=== PATIENT | female | born 1985 | race African-American/Black ===

== ENCOUNTER 2016-10-19 16:33 | Observation (INO) | payer MEDICARE, OTHER ==
[~2016-10-19 16:33] MED LIST: PREN-134 PO
[2016-10-19 17:28] VITALS: BP 107/53
[2016-10-19] MEDS ORDERED: ACETAMINOPHEN 325 MG TABLET PO ONE (21:00)
[2016-10-19] MEDS ORDERED: ACETAMINOPHEN 500 MG TABLET PO ONE (21:00)
== END 2016-10-19 22:05 | disposition home or self-care (01) ==
LOC: 4S 16:33
PROVIDERS: ADMIT Obstetrics & Gynecology; ATTEND Obstetrics & Gynecology
DX: O26.893 Other specified pregnancy related conditions, third trimester (principal); R10.2 Pelvic and perineal pain; R10.30 Lower abdominal pain, unspecified; Z3A.33 33 weeks gestation of pregnancy
CPT/HCPCS: 59025; 76817; 80307 ×8; 82731; G0378

== ENCOUNTER 2016-11-11 01:56 | Emergency (ER) | payer MEDICARE, OTHER ==
[~2016-11-11] VITALS: Ht 160 cm; Wt 110.0 kg
[2016-11-11 04:39] LABS: BASOPHILS # (AUTO) 0.05 K/uL (0.00-0.20); BASOPHILS % (AUTO) 0.6 % (0.0-2.0); EOSINOPHILS # (AUTO) 0.15 K/uL (0.00-0.70); EOSINOPHILS % (AUTO) 1.72 % (1.0-6.0); HEMATOCRIT 27.4 % (36-46); HEMOGLOBIN 8.8 g/dL (12.0-16.0); LYMPHOCYTES # (AUTO) 2.4 K/uL (1.0-4.8); LYMPHOCYTES % (AUTO) 28.2 % (22.0-44.0); MEAN CORPUSCULAR HEMOGLOBIN 27.7 pg (26.0-34.0); MEAN CORPUSCULAR HGB CONC 32.3 G/dL (31.0-37.0); MEAN CORPUSCULAR VOLUME 86 fL (80-100); MONOCYTES # (AUTO) 0.4 K/uL (0.1-1.0); MONOCYTES % (AUTO) 5.1 % (2.0-9.0); NEUTROPHILS # (AUTO) 5.6 K/uL (1.8-7.7); NEUTROPHILS % (AUTO) 64.5 % (40.0-70.0); PLATELET COUNT (AUTO) 365 K/uL (150-450); RED BLOOD CELL COUNT(AUTO) 3.19 MIL/uL (4.00-5.20); RED CELL DISTRIBUTION WIDTH 17.3 % (11.5-14.5); WHITE BLOOD COUNT (AUTO) 8.6 K/uL (4.5-11.0)
[2016-11-11 04:46] LABS: ANION GAP 10 mmol/L (8-16); CALCIUM, TOTAL 8.4 mg/dL (8.8-10.5); CARBON DIOXIDE 26 mmol/L (22-29); CHLORIDE 105 mmol/L (98-107); CREATININE 0.84 mg/dL (0.60-1.30); GLOMERULAR FILTR. RATE CALC > 60 mL/min (>60); POTASSIUM 3.8 mmol/L (3.5-5.1); SODIUM SERUM 141 mmol/L (136-145); UREA NITROGEN, BLOOD 20 mg/dL (7-18)
[2016-11-11 04:49] LABS: PROTHROMBIN TIME 10.2 SEC (9.4-11.6)
[2016-11-11 04:52] LABS: ALANINE AMINOTRANSFERASE 44 U/L (12-78); ALBUMIN 2.4 g/dL (3.4-5.0); ASPARTATE AMINOTRANSFERASE 29 U/L (15-37); BILIRUBIN,TOTAL 0.3 mg/dL (0.1-1.0); TOTAL PROTEIN, SERUM 6.1 g/dL (6.4-8.2)
[2016-11-11 04:54] LABS: B-TYPE NATRIURETIC PEPTIDE 59 pg/mL (0-100)
[2016-11-11 05:31] VITALS: BP 137/88
== END 2016-11-11 06:38 | disposition home or self-care (01) ==
LOC: EMS 01:57
DX: R60.9 Edema, unspecified (principal); F31.9 Bipolar disorder, unspecified; F20.9 Schizophrenia, unspecified; J45.909 Unspecified asthma, uncomplicated; Z88.0 Allergy status to penicillin
CPT/HCPCS: 99284

== ENCOUNTER 2017-01-03 22:24 | Emergency (ER) | payer MEDICARE, OTHER ==
[~2017-01-03] VITALS: Ht 167.6 cm; Wt 85.0 kg
[2017-01-03 22:59] LABS: BASOPHILS % (AUTO) 0.7 % (0.0-2.0); EOSINOPHILS % (AUTO) 0.3 % (1.0-6.0); HEMATOCRIT 32.5 % (36-46); HEMOGLOBIN 10.5 g/dL (12.0-16.0); LYMPHOCYTES # (AUTO) 2.2 K/uL (1.0-4.8); LYMPHOCYTES % (AUTO) 27.7 % (22.0-44.0); MEAN CORPUSCULAR HEMOGLOBIN 27.1 pg (26.0-34.0); MEAN CORPUSCULAR HGB CONC 32.2 G/dL (31.0-37.0); MEAN CORPUSCULAR VOLUME 84 fL (80-100); MONOCYTES # (AUTO) 0.4 K/uL (0.1-1.0); MONOCYTES % (AUTO) 4.6 % (2.0-9.0); NEUTROPHILS # (AUTO) 5.4 K/uL (1.8-7.7); NEUTROPHILS % (AUTO) 66.7 % (40.0-70.0); PLATELET COUNT (AUTO) 317 K/uL (150-450); RED BLOOD CELL COUNT(AUTO) 3.86 MIL/uL (4.00-5.20); RED CELL DISTRIBUTION WIDTH 17.7 % (11.5-14.5); WHITE BLOOD COUNT (AUTO) 8.1 K/uL (4.5-11.0)
[2017-01-03 23:01] LABS: RBC MORPHOLOGY COMMENT ABNORMAL RBC MORPH
[2017-01-03 23:04] LABS: ANION GAP 12 mmol/L (8-16); CALCIUM, TOTAL 9.3 mg/dL (8.8-10.5); CARBON DIOXIDE 24 mmol/L (22-29); CHLORIDE 103 mmol/L (98-107); GLOMERULAR FILTR. RATE CALC > 60 mL/min (>60); POTASSIUM 3.6 mmol/L (3.5-5.1); SODIUM SERUM 139 mmol/L (136-145); UREA NITROGEN, BLOOD 14 mg/dL (7-18)
[2017-01-03 23:10] LABS: ALANINE AMINOTRANSFERASE 27 U/L (12-78); ALBUMIN 4.1 g/dL (3.4-5.0); ASPARTATE AMINOTRANSFERASE 33 U/L (15-37); BILIRUBIN,TOTAL 0.6 mg/dL (0.1-1.0); TOTAL PROTEIN, SERUM 7.8 g/dL (6.4-8.2)
[2017-01-04 00:18] VITALS: BP 134/82
== END 2017-01-04 00:21 | disposition home or self-care (01) ==
LOC: EMS 22:26
DX: F31.9 Bipolar disorder, unspecified (principal); F20.9 Schizophrenia, unspecified; J45.909 Unspecified asthma, uncomplicated; Z88.0 Allergy status to penicillin
CPT/HCPCS: 36415; 80053; 84703; 85025; 99284; G0480

== ENCOUNTER 2017-01-26 04:03 | Emergency (ER) | payer MEDICARE, OTHER ==
[~2017-01-26] VITALS: Ht 160 cm; Wt 79.1 kg
[2017-01-26 04:53] LABS: BASOPHILS # (AUTO) 0.07 K/uL (0.00-0.20); BASOPHILS % (AUTO) 1.1 % (0.0-2.0); EOSINOPHILS # (AUTO) 0.08 K/uL (0.00-0.70); EOSINOPHILS % (AUTO) 1.11 % (1.0-6.0); HEMATOCRIT 38.1 % (36-46); HEMOGLOBIN 12.4 g/dL (12.0-16.0); LYMPHOCYTES % (AUTO) 29.4 % (22.0-44.0); MEAN CORPUSCULAR HEMOGLOBIN 27.9 pg (26.0-34.0); MEAN CORPUSCULAR HGB CONC 32.5 G/dL (31.0-37.0); MEAN CORPUSCULAR VOLUME 86 fL (80-100); MONOCYTES # (AUTO) 0.4 K/uL (0.1-1.0); MONOCYTES % (AUTO) 6.1 % (2.0-9.0); NEUTROPHILS # (AUTO) 4.2 K/uL (1.8-7.7); NEUTROPHILS % (AUTO) 62.3 % (40.0-70.0); PLATELET COUNT (AUTO) 395 K/uL (150-450); RED BLOOD CELL COUNT(AUTO) 4.44 MIL/uL (4.00-5.20); RED CELL DISTRIBUTION WIDTH 17.4 % (11.5-14.5); WHITE BLOOD COUNT (AUTO) 6.8 K/uL (4.5-11.0)
[2017-01-26] MEDS ORDERED: HYDROCODONE/ACETAMINOPHEN 5-325 MG TABLET PO ONE (05:00)
[2017-01-26 05:01] LABS: ANION GAP 8 mmol/L (8-16); CALCIUM, TOTAL 9.5 mg/dL (8.8-10.5); CARBON DIOXIDE 30 mmol/L (22-29); CHLORIDE 102 mmol/L (98-107); CREATININE 0.98 mg/dL (0.60-1.30); GLOMERULAR FILTR. RATE CALC > 60 mL/min (>60); POTASSIUM 4.2 mmol/L (3.5-5.1); SODIUM SERUM 140 mmol/L (136-145); UREA NITROGEN, BLOOD 16 mg/dL (7-18)
[2017-01-26 05:15] LABS: ALANINE AMINOTRANSFERASE 25 U/L (12-78); ALBUMIN 4.2 g/dL (3.4-5.0); ASPARTATE AMINOTRANSFERASE 13 U/L (15-37); BILIRUBIN,TOTAL 0.5 mg/dL (0.1-1.0); TOTAL PROTEIN, SERUM 8.6 g/dL (6.4-8.2)
[2017-01-26 05:17] LABS: B-TYPE NATRIURETIC PEPTIDE < 5 pg/mL (0-100)
[2017-01-26 05:34] VITALS: BP 101/59
[2017-01-26] MEDS ORDERED: LAMO25 PO (22:01)
[2017-01-26] MEDS ORDERED: QUET100T PO (22:01)
== END 2017-01-26 06:03 | disposition home or self-care (01) ==
LOC: EMS 04:07
DX: R07.9 Chest pain, unspecified (principal); K08.89 Other specified disorders of teeth and supporting structures; J45.909 Unspecified asthma, uncomplicated; Z88.0 Allergy status to penicillin
CPT/HCPCS: 85379; 93005; 99285

== ENCOUNTER 2017-01-26 21:53 | Emergency (ER) | payer MEDICARE, OTHER ==
[~2017-01-26] VITALS: Ht 167.6 cm; Wt 81.8 kg
[2017-01-26] MEDS ORDERED: LAMO25 PO (22:01)
[2017-01-26] MEDS ORDERED: QUET100T PO (22:01)
[2017-01-26 22:53] LABS: BASOPHILS # (AUTO) 0.07 K/uL (0.00-0.20); BASOPHILS % (AUTO) 0.9 % (0.0-2.0); EOSINOPHILS # (AUTO) 0.08 K/uL (0.00-0.70); HEMATOCRIT 38.9 % (36-46); HEMOGLOBIN 12.4 g/dL (12.0-16.0); LYMPHOCYTES # (AUTO) 2.3 K/uL (1.0-4.8); LYMPHOCYTES % (AUTO) 32.5 % (22.0-44.0); MEAN CORPUSCULAR HEMOGLOBIN 27.9 pg (26.0-34.0); MEAN CORPUSCULAR HGB CONC 31.8 G/dL (31.0-37.0); MEAN CORPUSCULAR VOLUME 88 fL (80-100); MONOCYTES # (AUTO) 0.4 K/uL (0.1-1.0); MONOCYTES % (AUTO) 5.3 % (2.0-9.0); NEUTROPHILS # (AUTO) 4.2 K/uL (1.8-7.7); NEUTROPHILS % (AUTO) 60.2 % (40.0-70.0); PLATELET COUNT (AUTO) 377 K/uL (150-450); RED BLOOD CELL COUNT(AUTO) 4.43 MIL/uL (4.00-5.20); RED CELL DISTRIBUTION WIDTH 17.2 % (11.5-14.5)
[2017-01-26 23:03] LABS: ANION GAP 8 mmol/L (8-16); CALCIUM, TOTAL 9.5 mg/dL (8.8-10.5); CARBON DIOXIDE 29 mmol/L (22-29); CHLORIDE 104 mmol/L (98-107); CREATININE 0.92 mg/dL (0.60-1.30); GLOMERULAR FILTR. RATE CALC > 60 mL/min (>60); POTASSIUM 3.7 mmol/L (3.5-5.1); SODIUM SERUM 141 mmol/L (136-145); UREA NITROGEN, BLOOD 13 mg/dL (7-18)
[2017-01-26 23:26] LABS: ALANINE AMINOTRANSFERASE 22 U/L (12-78); ASPARTATE AMINOTRANSFERASE 12 U/L (15-37); BILIRUBIN,TOTAL 0.4 mg/dL (0.1-1.0); CREATINE KINASE, TOTAL 86 U/L (26-192); TOTAL PROTEIN, SERUM 8.4 g/dL (6.4-8.2)
[2017-01-26 23:46] LABS: CREATINE KINASE MB 0.5 ng/mL (0-5)
[2017-01-27] MEDS ORDERED: HYDROmorphone 2 MG/ML SYRINGE IVP ONE (00:15)
[2017-01-27] MEDS ORDERED: FAMOTIDINE 10 MG/ML 2 ML VIAL IVP ONE (00:15)
[2017-01-27] MEDS ORDERED: ONDANSETRON HCL 4 MG/2 ML VIAL IVP ONE (00:15)
[2017-01-27] MEDS ORDERED: MAG HYDROX/AL HYDROX/SIMETH ES 30 ML SUSPENSION UDCUP PO ONE (01:15)
[2017-01-27 03:21] VITALS: BP 120/60
== END 2017-01-27 03:20 | disposition home or self-care (01) ==
LOC: EMS 21:54
DX: K80.70 Calculus of gallbladder and bile duct without cholecystitis without obstruction (principal); R07.89 Other chest pain; J45.909 Unspecified asthma, uncomplicated; Z88.0 Allergy status to penicillin
CPT/HCPCS: 36415; 71010; 76700; 80053; 82550; 82553; 83690; 84484; 84703; 85025; 85379; 93005; 96374; 96375; 99285; J1170; J2405; J3490

== ENCOUNTER 2017-01-30 00:55 | Emergency (ER) | payer MEDICARE, OTHER ==
[~2017-01-30] VITALS: Ht 165.1 cm; Wt 84.1 kg
[~2017-01-30 00:55] MED LIST changes: +LAMO25 PO; -PREN-134 PO; +QUET100T PO
[2017-01-30 00:58] VITALS: BP 121/79
[2017-01-30 02:42] LABS: BASOPHILS # (AUTO) 0.03 K/uL (0.00-0.20); BASOPHILS % (AUTO) 0.4 % (0.0-2.0); EOSINOPHILS # (AUTO) 0.07 K/uL (0.00-0.70); EOSINOPHILS % (AUTO) 0.75 % (1.0-6.0); HEMATOCRIT 38.9 % (36-46); HEMOGLOBIN 12.5 g/dL (12.0-16.0); LYMPHOCYTES # (AUTO) 2.9 K/uL (1.0-4.8); LYMPHOCYTES % (AUTO) 33.3 % (22.0-44.0); MEAN CORPUSCULAR HGB CONC 32.3 G/dL (31.0-37.0); MEAN CORPUSCULAR VOLUME 87 fL (80-100); MONOCYTES # (AUTO) 0.4 K/uL (0.1-1.0); MONOCYTES % (AUTO) 4.3 % (2.0-9.0); NEUTROPHILS # (AUTO) 5.4 K/uL (1.8-7.7); NEUTROPHILS % (AUTO) 61.3 % (40.0-70.0); PLATELET COUNT (AUTO) 372 K/uL (150-450); RED BLOOD CELL COUNT(AUTO) 4.47 MIL/uL (4.00-5.20); RED CELL DISTRIBUTION WIDTH 17.1 % (11.5-14.5); WHITE BLOOD COUNT (AUTO) 8.7 K/uL (4.5-11.0)
[2017-01-30 03:07] LABS: ANION GAP 9 mmol/L (8-16); CALCIUM, TOTAL 9.5 mg/dL (8.8-10.5); CARBON DIOXIDE 28 mmol/L (22-29); CHLORIDE 103 mmol/L (98-107); CREATININE 1.22 mg/dL (0.60-1.30); GLOMERULAR FILTR. RATE CALC > 60 mL/min (>60); POTASSIUM 3.5 mmol/L (3.5-5.1); SODIUM SERUM 140 mmol/L (136-145); UREA NITROGEN, BLOOD 22 mg/dL (7-18)
[2017-01-30 03:12] LABS: ALANINE AMINOTRANSFERASE 24 U/L (12-78); ALBUMIN 4.3 g/dL (3.4-5.0); ASPARTATE AMINOTRANSFERASE 14 U/L (15-37); BILIRUBIN,TOTAL 0.3 mg/dL (0.1-1.0); TOTAL PROTEIN, SERUM 8.6 g/dL (6.4-8.2)
== END 2017-01-30 05:52 | disposition left against medical advice (07) ==
LOC: EMS 00:58
DX: R07.2 Precordial pain (principal); K08.89 Other specified disorders of teeth and supporting structures; J45.909 Unspecified asthma, uncomplicated; Z88.0 Allergy status to penicillin
CPT/HCPCS: 36415; 80053; 80307; 85025; 93005; 99285; G0480

== ENCOUNTER 2017-02-03 16:24 | Inpatient (IN) | payer MEDICARE, MEDICAID ==
[~2017-02-03] VITALS: Ht 170.2 cm; Wt 78.5 kg
[2017-02-03 17:22] LABS: BASOPHILS # (AUTO) 0.09 K/uL (0.00-0.20); EOSINOPHILS # (AUTO) 0.02 K/uL (0.00-0.70); EOSINOPHILS % (AUTO) 0.26 % (1.0-6.0); HEMATOCRIT 34.4 % (36-46); LYMPHOCYTES # (AUTO) 2.6 K/uL (1.0-4.8); LYMPHOCYTES % (AUTO) 28.3 % (22.0-44.0); MEAN CORPUSCULAR HEMOGLOBIN 27.5 pg (26.0-34.0); MEAN CORPUSCULAR HGB CONC 31.9 G/dL (31.0-37.0); MEAN CORPUSCULAR VOLUME 86 fL (80-100); MONOCYTES # (AUTO) 0.7 K/uL (0.1-1.0); MONOCYTES % (AUTO) 7.6 % (2.0-9.0); NEUTROPHILS # (AUTO) 5.9 K/uL (1.8-7.7); NEUTROPHILS % (AUTO) 62.9 % (40.0-70.0); PLATELET COUNT (AUTO) 329 K/uL (150-450); RED BLOOD CELL COUNT(AUTO) 3.98 MIL/uL (4.00-5.20); RED CELL DISTRIBUTION WIDTH 15.7 % (11.5-14.5); WHITE BLOOD COUNT (AUTO) 9.3 K/uL (4.5-11.0)
[2017-02-03 17:28] LABS: ALANINE AMINOTRANSFERASE 52 U/L (12-78); ALBUMIN 4.3 g/dL (3.4-5.0); ANION GAP 15 mmol/L (8-16); ASPARTATE AMINOTRANSFERASE 182 U/L (15-37); BILIRUBIN,TOTAL 0.9 mg/dL (0.1-1.0); CALCIUM, TOTAL 9.2 mg/dL (8.8-10.5); CARBON DIOXIDE 24 mmol/L (22-29); CHLORIDE 102 mmol/L (98-107); GLOMERULAR FILTR. RATE CALC 57 mL/min (>60); SODIUM SERUM 141 mmol/L (136-145); TOTAL PROTEIN, SERUM 8.2 g/dL (6.4-8.2); UREA NITROGEN, BLOOD 19 mg/dL (7-18)
[2017-02-03 17:30] LABS: POTASSIUM 2.8 mmol/L (3.5-5.1)
[2017-02-03] MEDS ORDERED: HALOPERIDOL LACTATE 5 MG/ML VIAL IM ONE (17:45)
[2017-02-03] MEDS ORDERED: POTASSIUM CHLORIDE 20 MEQ ER TABLET PO ONE (17:45)
[2017-02-03] MEDS ORDERED: POTASSIUM CHL 40 MEQ/D5-0.45NS 1,000 ML IV ONE (17:45)
[2017-02-03] MEDS ORDERED: DiphenhydrAMINE HCL 50 MG/ML VIAL IM ONE (17:45)
[2017-02-03] MEDS ORDERED: LORazepam 2 MG/ML VIAL IM ONE (17:45)
[2017-02-03 20:37] LABS: GLUCOSE,POINT OF CARE 103 MG/DL (70-110)
[2017-02-04] MEDS ORDERED: ACETAMINOPHEN 325 MG TABLET PO ONE (08:30)
[2017-02-04 13:35] VITALS: BP 109/69
[2017-02-04] MEDS ORDERED: PNEUMOCOCCAL VACCINE POLYVALENT 0.5 ML VIAL [PPSV23] IM ONE (14:15)
[2017-02-04] MEDS ORDERED: ALBUTEROL SULFATE HFA 90 MCG/PUFF 8 GM INHALER IH PRN (15:00)
[2017-02-04] MEDS: ZOLPIDEM TARTRATE 10 MG TABLET PO PRN (20:30)
[2017-02-05 00:02] VITALS: BP 119/81
[2017-02-05] MEDS: LORazepam 2 MG TABLET PO PRN ×2 (00:09→17:03)
[2017-02-05] MEDS: DIVALPROEX SODIUM 500 MG DR TABLET PO SCH ×2 (08:57→17:00)
[2017-02-05] MEDS: LITHIUM CARBONATE 300 MG CAPSULE PO SCH ×2 (08:57→17:00)
[2017-02-05] MEDS: QUEtiapine FUMARATE 300 MG TABLET PO SCH ×2 (08:57→17:00)
[2017-02-05] MEDS ORDERED: ACETAMINOPHEN 650 MG/20.3 ML SOLUTION UDCUP PO PRN (10:45)
[2017-02-05] MEDS ORDERED: ACETAMINOPHEN 325 MG TABLET PO PRN (13:00)
[2017-02-05] MEDS: IBUPROFEN 400 MG TABLET PO PRN (15:45)
[2017-02-05 16:00] VITALS: BP 119/78
[2017-02-06 02:46] VITALS: BP 116/82
[2017-02-06] MEDS: ZOLPIDEM TARTRATE 10 MG TABLET PO PRN ×2 (02:49→20:22)
[2017-02-06] MEDS: IBUPROFEN 400 MG TABLET PO PRN ×2 (08:15→16:25)
[2017-02-06] MEDS: LORazepam 2 MG TABLET PO PRN ×2 (08:15→16:24)
[2017-02-06 08:44] VITALS: BP 122/69
[2017-02-06] MEDS: QUEtiapine FUMARATE 300 MG TABLET PO SCH ×2 (09:00→17:00)
[2017-02-06] MEDS: LITHIUM CARBONATE 300 MG CAPSULE PO SCH ×2 (09:00→17:00)
[2017-02-06] MEDS: DIVALPROEX SODIUM 500 MG DR TABLET PO SCH ×2 (09:00→17:00)
[2017-02-06] MEDS ORDERED: PERMETHRIN 5% 60 GM CREAM TP ONE (10:00)
[2017-02-06] MEDS ORDERED: PERMETHRIN 1% 60 ML LOTION TP ONE (12:00)
[2017-02-06 16:15] VITALS: BP 124/84
[2017-02-07 06:26] VITALS: BP 118/69
[2017-02-07] MEDS: HALOPERIDOL 5 MG TABLET PO PRN ×2 (08:22→16:25)
[2017-02-07 08:36] VITALS: BP 111/78
[2017-02-07] MEDS: IBUPROFEN 400 MG TABLET PO PRN (08:42)
[2017-02-07] MEDS: DIVALPROEX SODIUM 500 MG DR TABLET PO SCH ×2 (08:51→17:00)
[2017-02-07] MEDS: LITHIUM CARBONATE 300 MG CAPSULE PO SCH ×2 (08:51→17:00)
[2017-02-07] MEDS: QUEtiapine FUMARATE 300 MG TABLET PO SCH ×2 (08:52→17:00)
[2017-02-07 16:37] VITALS: BP 132/64
[2017-02-07] MEDS: ZOLPIDEM TARTRATE 10 MG TABLET PO PRN (20:43)
[2017-02-08 08:27] VITALS: BP 135/98
[2017-02-08] MEDS: QUEtiapine FUMARATE 300 MG TABLET PO SCH (09:00)
[2017-02-08] MEDS: LITHIUM CARBONATE 300 MG CAPSULE PO SCH (09:00)
[2017-02-08] MEDS: DIVALPROEX SODIUM 500 MG DR TABLET PO SCH (09:00)
[2017-02-08] MEDS ORDERED: QUET300T2 PO (09:48)
[2017-02-08] MEDS ORDERED: LITH300C3 PO (09:49)
[2017-02-08] MEDS ORDERED: DIVA250T4 PO (09:55)
== END 2017-02-08 10:34 | disposition home or self-care (01) | DRG 885 ==
LOC: EMS 16:26 → B3A 02-04 10:48
PROVIDERS: ADMIT Psychiatry & Neurology Psychiatry; ATTEND Psychiatry & Neurology Psychiatry
DX: F31.9 Bipolar disorder, unspecified (principal); F25.9 Schizoaffective disorder, unspecified; E87.6 Hypokalemia; L20.9 Atopic dermatitis, unspecified; F22 Delusional disorders; J45.909 Unspecified asthma, uncomplicated; E66.9 Obesity, unspecified; Z53.29 Procedure and treatment not carried out because of patient's decision for other reasons; E78.5 Hyperlipidemia, unspecified; D64.9 Anemia, unspecified; K59.00 Constipation, unspecified; Z88.0 Allergy status to penicillin; Z28.21 Immunization not carried out because of patient refusal
CPT/HCPCS: 82962; 84132; 93005; 96365; 96366; 96372; 99285; G0480; J1200; J1630; J2060; J3480

== ENCOUNTER 2017-02-18 00:42 | Inpatient (IN) | payer MEDICARE, MEDICAID ==
[~2017-02-18] VITALS: Ht 172.7 cm; Wt 76.4 kg
[~2017-02-18 00:42] MED LIST changes: +DIVA250T4 PO; -LAMO25 PO; +LITH300C3 PO; -QUET100T PO; +QUET300T2 PO
[2017-02-18] MEDS ORDERED: DiphenhydrAMINE HCL 50 MG/ML VIAL ONE (01:22)
[2017-02-18] MEDS ORDERED: HALOPERIDOL LACTATE 5 MG/ML VIAL ONE (01:22)
[2017-02-18] MEDS ORDERED: LORazepam 2 MG/ML VIAL ONE (01:22)
[2017-02-18] MEDS ORDERED: HALOPERIDOL LACTATE 5 MG/ML VIAL IM ONE (01:30)
[2017-02-18] MEDS ORDERED: LORazepam 2 MG/ML VIAL IM ONE (01:30)
[2017-02-18] MEDS ORDERED: DiphenhydrAMINE HCL 50 MG/ML VIAL IM ONE (01:30)
[2017-02-18 02:42] LABS: BASOPHILS % (AUTO) 0.2 % (0.0-2.0); EOSINOPHILS % (AUTO) 0 % (1.0-6.0); HEMATOCRIT 35.6 % (36-46); HEMOGLOBIN 11.3 g/dL (12.0-16.0); LYMPHOCYTES # (AUTO) 1.7 K/uL (1.0-4.8); LYMPHOCYTES % (AUTO) 16.3 % (22.0-44.0); MEAN CORPUSCULAR HEMOGLOBIN 27.7 pg (26.0-34.0); MEAN CORPUSCULAR HGB CONC 31.8 G/dL (31.0-37.0); MEAN CORPUSCULAR VOLUME 87 fL (80-100); MONOCYTES # (AUTO) 0.2 K/uL (0.1-1.0); MONOCYTES % (AUTO) 2.1 % (2.0-9.0); NEUTROPHILS # (AUTO) 8.4 K/uL (1.8-7.7); NEUTROPHILS % (AUTO) 81.4 % (40.0-70.0); PLATELET COUNT (AUTO) 392 K/uL (150-450); RED BLOOD CELL COUNT(AUTO) 4.09 MIL/uL (4.00-5.20); RED CELL DISTRIBUTION WIDTH 16.3 % (11.5-14.5); WHITE BLOOD COUNT (AUTO) 10.4 K/uL (4.5-11.0)
[2017-02-18 02:51] LABS: ANION GAP 10 mmol/L (8-16); CALCIUM, TOTAL 9.3 mg/dL (8.8-10.5); CARBON DIOXIDE 26 mmol/L (22-29); CHLORIDE 101 mmol/L (98-107); CREATININE 1.17 mg/dL (0.60-1.30); GLOMERULAR FILTR. RATE CALC > 60 mL/min (>60); POTASSIUM 3.8 mmol/L (3.5-5.1); SODIUM SERUM 137 mmol/L (136-145); UREA NITROGEN, BLOOD 17 mg/dL (7-18)
[2017-02-18 02:57] LABS: ALANINE AMINOTRANSFERASE 39 U/L (12-78); ALBUMIN 4.2 g/dL (3.4-5.0); ASPARTATE AMINOTRANSFERASE 28 U/L (15-37); BILIRUBIN,TOTAL 0.4 mg/dL (0.1-1.0)
[2017-02-18] MEDS ORDERED: LORazepam 2 MG TABLET PO PRN (03:00)
[2017-02-18] MEDS ORDERED: HALOPERIDOL 5 MG TABLET PO PRN (03:00)
[2017-02-18] MEDS ORDERED: ZOLPIDEM TARTRATE 10 MG TABLET PO PRN (03:00)
[2017-02-18 03:23] LABS: CHOL/HDL RATIO 3.3 (3.9-5.7)
[2017-02-18 05:58] VITALS: BP 117/76
[2017-02-18 08:31] VITALS: BP 126/84
[2017-02-18] MEDS: LamoTRIgine 25 MG TABLET PO SCH ×2 (12:19→20:41)
[2017-02-18] MEDS ORDERED: ACETAMINOPHEN 325 MG TABLET PO PRN ×2 (13:45→21:00)
[2017-02-18] MEDS ORDERED: BENZOCAINE 10% 7 GM GEL TP PRN (13:45)
[2017-02-18] MEDS ORDERED: IBUPROFEN 600 MG TABLET PO PRN (13:45)
[2017-02-18 16:00] VITALS: BP 125/71
[2017-02-18] MEDS ORDERED: QUEtiapine FUMARATE 200 MG TABLET PO SCH (21:00)
[2017-02-18] MEDS ORDERED: DOCUSATE SODIUM 100 MG CAPSULE PO PRN (21:00)
[2017-02-18] MEDS ORDERED: ALBUTEROL SULFATE HFA 90 MCG/PUFF 8 GM INHALER IH PRN (21:00)
[2017-02-19] MEDS ORDERED: PNEUMOCOCCAL VACCINE POLYVALENT 0.5 ML VIAL [PPSV23] IM ONE (00:30)
[2017-02-19 01:12] VITALS: BP 110/63
[2017-02-19] MEDS: IBUPROFEN 400 MG TABLET PO PRN ×2 (01:15→09:28)
[2017-02-19 08:17] LABS: HEMOGLOBIN A1C 5.5 % (4.5-6.2)
[2017-02-19 08:32] LABS: CHOL/HDL RATIO 3.1 (3.9-5.7); THYROID STIMULATING HORMONE 0.57 uIU/mL (0.36-3.74)
[2017-02-19 08:55] VITALS: BP 106/59
[2017-02-19] MEDS: LamoTRIgine 25 MG TABLET PO SCH (09:27)
[2017-02-19] MEDS ORDERED: QUET200T PO (11:48)
[2017-02-19] MEDS ORDERED: LAMO25 PO (11:48)
== END 2017-02-19 13:46 | disposition home or self-care (01) | DRG 885 ==
LOC: EMS 00:42 → B3A 03:23 → EMS 03:30
PROVIDERS: ADMIT Psychiatry & Neurology Psychiatry; ATTEND Psychiatry & Neurology Psychiatry
DX: F20.0 Paranoid schizophrenia (principal); J45.909 Unspecified asthma, uncomplicated; K59.00 Constipation, unspecified; E78.5 Hyperlipidemia, unspecified; E66.9 Obesity, unspecified; Z88.0 Allergy status to penicillin; Z79.899 Other long term (current) drug therapy; Z68.25 Body mass index [BMI] 25.0-25.9, adult; Z28.21 Immunization not carried out because of patient refusal
CPT/HCPCS: 83036; 84443; 87081; 96372; 99285; G0480; J1200; J1630; J2060

== ENCOUNTER 2017-03-23 21:54 | Emergency (ER) | payer MEDICARE, OTHER ==
[~2017-03-23] VITALS: Ht 160 cm; Wt 80.9 kg
[~2017-03-23 21:54] MED LIST changes: -DIVA250T4 PO; +LAMO25 PO; -LITH300C3 PO; +QUET200T PO; -QUET300T2 PO
[2017-03-23 22:41] LABS: BASOPHILS # (AUTO) 0.21 K/uL (0.00-0.20); BASOPHILS % (AUTO) 2.3 % (0.0-2.0); EOSINOPHILS # (AUTO) 0.12 K/uL (0.00-0.70); EOSINOPHILS % (AUTO) 1.29 % (1.0-6.0); HEMATOCRIT 31.7 % (36-46); HEMOGLOBIN 10.6 g/dL (12.0-16.0); LYMPHOCYTES # (AUTO) 3.9 K/uL (1.0-4.8); LYMPHOCYTES % (AUTO) 41.6 % (22.0-44.0); MEAN CORPUSCULAR HEMOGLOBIN 29.4 pg (26.0-34.0); MEAN CORPUSCULAR HGB CONC 33.4 G/dL (31.0-37.0); MEAN CORPUSCULAR VOLUME 88 fL (80-100); MONOCYTES # (AUTO) 0.4 K/uL (0.1-1.0); MONOCYTES % (AUTO) 4.1 % (2.0-9.0); NEUTROPHILS # (AUTO) 4.7 K/uL (1.8-7.7); NEUTROPHILS % (AUTO) 50.8 % (40.0-70.0); PLATELET COUNT (AUTO) 333 K/uL (150-450); RED CELL DISTRIBUTION WIDTH 14.5 % (11.5-14.5); WHITE BLOOD COUNT (AUTO) 9.3 K/uL (4.5-11.0)
[2017-03-23 22:51] LABS: ANION GAP 11 mmol/L (8-16); CALCIUM, TOTAL 9.2 mg/dL (8.8-10.5); CARBON DIOXIDE 25 mmol/L (22-29); CHLORIDE 104 mmol/L (98-107); CREATININE 1.03 mg/dL (0.60-1.30); GLOMERULAR FILTR. RATE CALC > 60 mL/min (>60); POTASSIUM 3.3 mmol/L (3.5-5.1); SODIUM SERUM 140 mmol/L (136-145); UREA NITROGEN, BLOOD 13 mg/dL (7-18)
[2017-03-23 22:56] LABS: ALANINE AMINOTRANSFERASE 11 U/L (12-78); ALBUMIN 3.9 g/dL (3.4-5.0); ASPARTATE AMINOTRANSFERASE 16 U/L (15-37); BILIRUBIN,TOTAL 0.3 mg/dL (0.1-1.0); TOTAL PROTEIN, SERUM 7.8 g/dL (6.4-8.2)
[2017-03-23 23:35] VITALS: BP 129/74
[2017-03-23] MEDS ORDERED: ACETAMINOPHEN 500 MG TABLET PO ONE (23:45)
== END 2017-03-23 23:47 | disposition home or self-care (01) ==
LOC: EMS 21:56
DX: R10.13 Epigastric pain (principal); S90.121A Contusion of right lesser toe(s) without damage to nail, initial encounter; R60.0 Localized edema; F41.9 Anxiety disorder, unspecified; J45.909 Unspecified asthma, uncomplicated; Z88.0 Allergy status to penicillin; V03.90XA Pedestrian on foot injured in collision with car, pick-up truck or van, unspecified whether traffic or nontraffic accident, initial encounter; Y93.89 Activity, other specified; Y92.89 Other specified places as the place of occurrence of the external cause; Y99.8 Other external cause status
CPT/HCPCS: 93005; 99285

== ENCOUNTER 2017-07-24 23:27 | Inpatient (IN) | payer MEDICARE, MEDICAID ==
[~2017-07-24] VITALS: Ht 160 cm; Wt 81.7 kg
[2017-07-24 23:50] LABS: BASOPHILS % (AUTO) 0.9 % (0.0-2.0); EOSINOPHILS % (AUTO) 0.7 % (1.0-6.0); HEMATOCRIT 37.3 % (36-46); HEMOGLOBIN 12.5 g/dL (12.0-16.0); LYMPHOCYTES # (AUTO) 3.6 K/uL (1.0-4.8); LYMPHOCYTES % (AUTO) 35.8 % (22.0-44.0); MEAN CORPUSCULAR HEMOGLOBIN 30.8 pg (26.0-34.0); MEAN CORPUSCULAR HGB CONC 33.5 G/dL (31.0-37.0); MEAN CORPUSCULAR VOLUME 92 fL (80-100); MONOCYTES # (AUTO) 0.7 K/uL (0.1-1.0); MONOCYTES % (AUTO) 7.3 % (2.0-9.0); NEUTROPHILS # (AUTO) 5.5 K/uL (1.8-7.7); NEUTROPHILS % (AUTO) 55.3 % (40.0-70.0); PLATELET COUNT (AUTO) 384 K/uL (150-450); RED BLOOD CELL COUNT(AUTO) 4.07 MIL/uL (4.00-5.20); RED CELL DISTRIBUTION WIDTH 14.5 % (11.5-14.5)
[2017-07-25 00:03] LABS: ANION GAP 8 mmol/L (8-16); CALCIUM, TOTAL 9.6 mg/dL (8.8-10.5); CARBON DIOXIDE 28 mmol/L (22-29); CHLORIDE 101 mmol/L (98-107); CREATININE 1.06 mg/dL (0.60-1.30); GLOMERULAR FILTR. RATE CALC > 60 mL/min (>60); GLUCOSE,RANDOM 107 mg/dL (70-110); POTASSIUM 3.9 mmol/L (3.5-5.1); SODIUM SERUM 137 mmol/L (136-145); UREA NITROGEN, BLOOD 10 mg/dL (7-18)
[2017-07-25 00:09] LABS: ALANINE AMINOTRANSFERASE 18 U/L (12-78); ALBUMIN 4.5 g/dL (3.4-5.0); ALKALINE PHOSPHATASE 43 U/L (46-116); ASPARTATE AMINOTRANSFERASE 20 U/L (15-37); BILIRUBIN,TOTAL 0.4 mg/dL (0.1-1.0); TOTAL PROTEIN, SERUM 8.2 g/dL (6.4-8.2)
[2017-07-25] MEDS ORDERED: HALOPERIDOL 5 MG TABLET PO ONE (00:15)
[2017-07-25] MEDS ORDERED: LORazepam 2 MG TABLET PO ONE (00:15)
[2017-07-25] MEDS ORDERED: DiphenhydrAMINE HCL 25 MG CAPSULE PO ONE (00:15)
[2017-07-25 03:40] VITALS: BP 97/54
[2017-07-25] MEDS: LORazepam 2 MG TABLET PO PRN ×2 (10:28→23:55)
[2017-07-25 16:51] VITALS: BP 112/66
[2017-07-25] MEDS ORDERED: IBUPROFEN 400 MG TABLET PO PRN (17:00)
[2017-07-25] MEDS ORDERED: ACETAMINOPHEN 325 MG TABLET PO PRN (17:00)
[2017-07-25] MEDS: HALOPERIDOL 5 MG TABLET PO PRN (23:56)
[2017-07-26 01:06] VITALS: BP 124/73
[2017-07-26] MEDS ORDERED: ZOLPIDEM TARTRATE 10 MG TABLET PO PRN (02:00)
[2017-07-26 07:30] LABS: BASOPHILS % (AUTO) 0.9 % (0.0-2.0); EOSINOPHILS % (AUTO) 1.5 % (1.0-6.0); HEMATOCRIT 35.4 % (36-46); HEMOGLOBIN 11.9 g/dL (12.0-16.0); LYMPHOCYTES # (AUTO) 2.5 K/uL (1.0-4.8); LYMPHOCYTES % (AUTO) 37.5 % (22.0-44.0); MEAN CORPUSCULAR HGB CONC 33.7 G/dL (31.0-37.0); MEAN CORPUSCULAR VOLUME 92 fL (80-100); MONOCYTES # (AUTO) 0.5 K/uL (0.1-1.0); MONOCYTES % (AUTO) 7.3 % (2.0-9.0); NEUTROPHILS # (AUTO) 3.5 K/uL (1.8-7.7); NEUTROPHILS % (AUTO) 52.8 % (40.0-70.0); PLATELET COUNT (AUTO) 320 K/uL (150-450); RED BLOOD CELL COUNT(AUTO) 3.84 MIL/uL (4.00-5.20); RED CELL DISTRIBUTION WIDTH 14.4 % (11.5-14.5)
[2017-07-26 08:12] VITALS: BP 113/80
[2017-07-26 08:20] LABS: ALANINE AMINOTRANSFERASE 16 U/L (12-78); ALBUMIN 3.4 g/dL (3.4-5.0); ALKALINE PHOSPHATASE 32 U/L (46-116); ANION GAP 6 mmol/L (8-16); ASPARTATE AMINOTRANSFERASE 13 U/L (15-37); BILIRUBIN,TOTAL 0.3 mg/dL (0.1-1.0); CARBON DIOXIDE 28 mmol/L (22-29); CHLORIDE 104 mmol/L (98-107); CHOL/HDL RATIO 2.8 (3.9-5.7); CHOLESTEROL 153 mg/dL (131-200); CREATININE 0.83 mg/dL (0.60-1.30); GLOMERULAR FILTR. RATE CALC > 60 mL/min (>60); GLUCOSE,RANDOM 86 mg/dL (70-110); HDL CHOLESTEROL 54 mg/dL (40-60); LDL CHOL (CALC.) 85 mg/dL (0-130); POTASSIUM 4.5 mmol/L (3.5-5.1); SODIUM SERUM 138 mmol/L (136-145); THYROID STIMULATING HORMONE 0.75 uIU/mL (0.36-3.74); TOTAL PROTEIN, SERUM 6.8 g/dL (6.4-8.2); TRIGLYCERIDES 69 mg/dL (15-150); UREA NITROGEN, BLOOD 16 mg/dL (7-18)
[2017-07-26 08:31] LABS: HEMOGLOBIN A1C 5.2 % (4.5-6.2)
[2017-07-26] MEDS: LORazepam 2 MG TABLET PO PRN ×2 (16:33→22:20)
[2017-07-26] MEDS: LamoTRIgine 100 MG TABLET PO SCH (16:33)
[2017-07-26 17:03] VITALS: BP 125/94
[2017-07-26] MEDS: DOCUSATE SODIUM 250 MG CAPSULE PO SCH (18:33)
[2017-07-26] MEDS ORDERED: IBUPROFEN 400 MG TABLET PO PRN (19:45)
[2017-07-26] MEDS ORDERED: ACETAMINOPHEN 325 MG TABLET PO PRN (19:45)
[2017-07-26] MEDS ORDERED: QUEtiapine FUMARATE 300 MG TABLET PO SCH (21:00)
[2017-07-27] MEDS: FERROUS SULFATE 325 MG EC TABLET PO SCH ×3 (06:40→18:43)
[2017-07-27] MEDS: LamoTRIgine 100 MG TABLET PO SCH ×2 (08:11→18:43)
[2017-07-27] MEDS: DOCUSATE SODIUM 250 MG CAPSULE PO SCH (08:11)
[2017-07-27 08:15] VITALS: BP 114/63
[2017-07-27] MEDS ORDERED: ARIPiprazole 15 MG TABLET PO SCH (09:00)
[2017-07-27] MEDS: HALOPERIDOL 5 MG TABLET PO PRN (18:56)
[2017-07-27] MEDS: LORazepam 2 MG TABLET PO PRN (18:56)
[2017-07-27 19:00] VITALS: BP 125/94
[2017-07-28 01:03] VITALS: BP 112/74
[2017-07-28 08:18] VITALS: BP 110/62
[2017-07-28] MEDS: LamoTRIgine 100 MG TABLET PO SCH (08:18)
[2017-07-28] MEDS: FERROUS SULFATE 325 MG EC TABLET PO SCH ×2 (08:18→11:18)
[2017-07-28] MEDS: DOCUSATE SODIUM 250 MG CAPSULE PO SCH (08:18)
[2017-07-28] MEDS ORDERED: BENZOCAINE 10% 7 GM GEL TP PRN (09:00)
[2017-07-28] MEDS: LORazepam 2 MG TABLET PO PRN (09:02)
[2017-07-28 09:18] VITALS: BP 116/82
[2017-07-28] MEDS ORDERED: ARIP15TA2 PO (11:32)
[2017-07-28] MEDS ORDERED: DOCU250C91 PO (11:33)
[2017-07-28] MEDS ORDERED: FERR-89 PO (11:33)
[2017-07-28] MEDS ORDERED: ARIPiprazole 15 MG TABLET PO SCH (21:00)
== END 2017-07-28 12:45 | disposition home or self-care (01) | DRG 885 ==
LOC: EMS 23:28 → 3EX 07-25 01:23
PROVIDERS: ADMIT Psychiatry & Neurology Psychiatry; ATTEND Psychiatry & Neurology Psychiatry
DX: F25.0 Schizoaffective disorder, bipolar type (principal); D64.9 Anemia, unspecified; E66.9 Obesity, unspecified; E78.5 Hyperlipidemia, unspecified; F41.9 Anxiety disorder, unspecified; J45.909 Unspecified asthma, uncomplicated; K59.00 Constipation, unspecified; Z88.0 Allergy status to penicillin; Z79.899 Other long term (current) drug therapy; Z68.31 Body mass index [BMI] 31.0-31.9, adult
CPT/HCPCS: 83036; 84443; 99285; G0480

== ENCOUNTER 2017-11-03 15:07 | Emergency (ER) | payer MEDICARE, OTHER ==
[~2017-11-03] VITALS: Ht 160 cm; Wt 92.7 kg
[~2017-11-03 15:07] MED LIST changes: +ARIP15TA2 PO; +DOCU250C91 PO; +FERR-89 PO; -QUET200T PO
[2017-11-03] MEDS ORDERED: ACETAMINOPHEN 500 MG TABLET PO ONE (15:30)
[2017-11-03] MEDS ORDERED: ONDANSETRON HCL 4 MG TABLET PO ONE (15:30)
[2017-11-03 15:45] LABS: BASOPHILS % (AUTO) 0.3 % (0.0-2.0); EOSINOPHILS % (AUTO) 1.4 % (1.0-6.0); HEMATOCRIT 33.3 % (36-46); HEMOGLOBIN 11.4 g/dL (12.0-16.0); LYMPHOCYTES # (AUTO) 2.3 K/uL (1.0-4.8); LYMPHOCYTES % (AUTO) 34.4 % (22.0-44.0); MEAN CORPUSCULAR HEMOGLOBIN 30.5 pg (26.0-34.0); MEAN CORPUSCULAR HGB CONC 34.1 G/dL (31.0-37.0); MEAN CORPUSCULAR VOLUME 89 fL (80-100); MONOCYTES # (AUTO) 0.5 K/uL (0.1-1.0); MONOCYTES % (AUTO) 8.2 % (2.0-9.0); NEUTROPHILS # (AUTO) 3.7 K/uL (1.8-7.7); NEUTROPHILS % (AUTO) 55.7 % (40.0-70.0); PLATELET COUNT (AUTO) 258 K/uL (150-450); RED BLOOD CELL COUNT(AUTO) 3.73 MIL/uL (4.00-5.20); RED CELL DISTRIBUTION WIDTH 13.7 % (11.5-14.5)
[2017-11-03 19:12] VITALS: BP 117/58
== END 2017-11-03 20:00 | disposition home or self-care (01) ==
LOC: EMS 15:08
DX: O02.1 Missed abortion (principal); J45.909 Unspecified asthma, uncomplicated; F20.9 Schizophrenia, unspecified; Z88.0 Allergy status to penicillin
CPT/HCPCS: 36415; 76801; 76817; 84702; 85025; 99285; Q0162

== ENCOUNTER 2017-11-04 20:10 | Emergency (ER) | payer MEDICARE, OTHER ==
[~2017-11-04] VITALS: Ht 160 cm; Wt 92.7 kg
[2017-11-04 20:59] LABS: BASOPHILS % (AUTO) 1.5 % (0.0-2.0); HEMATOCRIT 37.5 % (36-46); HEMOGLOBIN 12.7 g/dL (12.0-16.0); LYMPHOCYTES # (AUTO) 2.8 K/uL (1.0-4.8); LYMPHOCYTES % (AUTO) 35.9 % (22.0-44.0); MEAN CORPUSCULAR HEMOGLOBIN 30.5 pg (26.0-34.0); MEAN CORPUSCULAR HGB CONC 33.9 G/dL (31.0-37.0); MEAN CORPUSCULAR VOLUME 90 fL (80-100); MONOCYTES # (AUTO) 0.4 K/uL (0.1-1.0); MONOCYTES % (AUTO) 4.8 % (2.0-9.0); NEUTROPHILS # (AUTO) 4.5 K/uL (1.8-7.7); NEUTROPHILS % (AUTO) 56.8 % (40.0-70.0); PLATELET COUNT (AUTO) 304 K/uL (150-450); RED BLOOD CELL COUNT(AUTO) 4.17 MIL/uL (4.00-5.20); RED CELL DISTRIBUTION WIDTH 13.5 % (11.5-14.5)
[2017-11-04 21:17] LABS: ANION GAP 10 mmol/L (8-16); CALCIUM, TOTAL 8.8 mg/dL (8.8-10.5); CARBON DIOXIDE 27 mmol/L (22-29); CHLORIDE 102 mmol/L (98-107); CREATININE 0.61 mg/dL (0.60-1.30); GLOMERULAR FILTR. RATE CALC > 60 mL/min (>60); GLUCOSE,RANDOM 88 mg/dL (70-110); POTASSIUM 3.5 mmol/L (3.5-5.1); SODIUM SERUM 139 mmol/L (136-145); UREA NITROGEN, BLOOD 8 mg/dL (7-18)
[2017-11-04] MEDS ORDERED: ACETAMINOPHEN 500 MG TABLET PO ONE (21:30)
[2017-11-04 21:45] LABS: ALANINE AMINOTRANSFERASE 14 U/L (12-78); ALBUMIN 3.9 g/dL (3.4-5.0); ALKALINE PHOSPHATASE 48 U/L (46-116); ASPARTATE AMINOTRANSFERASE 17 U/L (15-37); BILIRUBIN,TOTAL 0.5 mg/dL (0.1-1.0); HCG,QUANTITATIVE 19073 mIU/mL (0-6); TOTAL PROTEIN, SERUM 8.4 g/dL (6.4-8.2)
[2017-11-04] MEDS ORDERED: OxyCODONE HCL/ACETAMINOPHEN 5-325 MG TABLET PO ONE (23:30)
[2017-11-05] MEDS ORDERED: ONDANSETRON HCL 4 MG/2 ML VIAL IVP ONE (00:15)
[2017-11-05] MEDS ORDERED: MORPHINE SULFATE 4 MG/ML SYRINGE IVP ONE (00:15)
[2017-11-05] MEDS ORDERED: SODIUM CHLORIDE 0.9% 1,000 ML IV ONE (00:15)
[2017-11-05] MEDS ORDERED: MORPHINE SULFATE 2 MG/ML SYRINGE IVP ONE (01:30)
[2017-11-05 02:09] VITALS: BP 131/69
== END 2017-11-05 02:19 | disposition home or self-care (01) ==
LOC: EMS 20:13
DX: O03.4 Incomplete spontaneous abortion without complication (principal); J45.909 Unspecified asthma, uncomplicated
CPT/HCPCS: 36415; 76801; 76817; 80053; 84702; 85025; 96361; 96374; 96375; 96376; 99285; J2270 ×2; J2405; J7030

== ENCOUNTER 2017-12-18 17:48 | Emergency (ER) | payer MEDICARE, OTHER ==
[~2017-12-18] VITALS: Ht 160 cm; Wt 73.6 kg
[2017-12-18] MEDS ORDERED: ARIP5TAB8 PO (17:58)
[2017-12-18] MEDS ORDERED: LAMO25 PO (17:58)
[2017-12-18 19:34] LABS: BASOPHILS % (AUTO) 0.9 % (0.0-2.0); EOSINOPHILS % (AUTO) 0.6 % (1.0-6.0); HEMOGLOBIN 12.6 g/dL (12.0-16.0); LYMPHOCYTES # (AUTO) 2.6 K/uL (1.0-4.8); LYMPHOCYTES % (AUTO) 33.1 % (22.0-44.0); MEAN CORPUSCULAR HEMOGLOBIN 30.2 pg (26.0-34.0); MEAN CORPUSCULAR VOLUME 89 fL (80-100); MONOCYTES # (AUTO) 0.6 K/uL (0.1-1.0); MONOCYTES % (AUTO) 7.3 % (2.0-9.0); NEUTROPHILS # (AUTO) 4.6 K/uL (1.8-7.7); NEUTROPHILS % (AUTO) 58.1 % (40.0-70.0); PLATELET COUNT (AUTO) 336 K/uL (150-450); RED BLOOD CELL COUNT(AUTO) 4.16 MIL/uL (4.00-5.20); RED CELL DISTRIBUTION WIDTH 13.6 % (11.5-14.5)
[2017-12-18 19:58] LABS: ANION GAP 8 mmol/L (8-16); CALCIUM, TOTAL 9.4 mg/dL (8.8-10.5); CARBON DIOXIDE 28 mmol/L (22-29); CHLORIDE 105 mmol/L (98-107); CREATININE 0.71 mg/dL (0.60-1.30); GLOMERULAR FILTR. RATE CALC > 60 mL/min (>60); GLUCOSE,RANDOM 98 mg/dL (70-110); POTASSIUM 3.7 mmol/L (3.5-5.1); SODIUM SERUM 141 mmol/L (136-145); UREA NITROGEN, BLOOD 8 mg/dL (7-18)
[2017-12-18 20:04] LABS: ALANINE AMINOTRANSFERASE 20 U/L (12-78); ALBUMIN 3.8 g/dL (3.4-5.0); ALKALINE PHOSPHATASE 53 U/L (46-116); ASPARTATE AMINOTRANSFERASE 15 U/L (15-37); BILIRUBIN,TOTAL 0.5 mg/dL (0.1-1.0); LIPASE 106 U/L (73-393); TOTAL PROTEIN, SERUM 7.9 g/dL (6.4-8.2)
[2017-12-18 20:58] VITALS: BP 143/94
== END 2017-12-18 22:48 | disposition left against medical advice (07) ==
LOC: EMS 17:49
DX: R07.2 Precordial pain (principal); G47.00 Insomnia, unspecified; J45.909 Unspecified asthma, uncomplicated; Z88.0 Allergy status to penicillin
CPT/HCPCS: 93005; 99285

== ENCOUNTER 2018-02-19 19:38 | Emergency (ER) | payer MEDICARE, OTHER ==
[~2018-02-19] VITALS: Ht 160 cm; Wt 96.0 kg
[~2018-02-19 19:38] MED LIST changes: -ARIP15TA2 PO; +ARIP5TAB8 PO; -DOCU250C91 PO; -FERR-89 PO
[2018-02-19 20:32] LABS: BASOPHILS % (AUTO) 0.9 % (0.0-2.0); EOSINOPHILS % (AUTO) 1.1 % (1.0-6.0); HEMATOCRIT 34.7 % (36-46); HEMOGLOBIN 11.8 g/dL (12.0-16.0); LYMPHOCYTES # (AUTO) 3.3 K/uL (1.0-4.8); LYMPHOCYTES % (AUTO) 38.8 % (22.0-44.0); MEAN CORPUSCULAR HEMOGLOBIN 30.2 pg (26.0-34.0); MEAN CORPUSCULAR HGB CONC 33.9 G/dL (31.0-37.0); MEAN CORPUSCULAR VOLUME 89 fL (80-100); MONOCYTES # (AUTO) 0.5 K/uL (0.1-1.0); MONOCYTES % (AUTO) 5.6 % (2.0-9.0); NEUTROPHILS # (AUTO) 4.6 K/uL (1.8-7.7); NEUTROPHILS % (AUTO) 53.6 % (40.0-70.0); PLATELET COUNT (AUTO) 306 K/uL (150-450); RED BLOOD CELL COUNT(AUTO) 3.89 MIL/uL (4.00-5.20); RED CELL DISTRIBUTION WIDTH 14.3 % (11.5-14.5)
[2018-02-19 21:20] LABS: APPEARANCE,URINE CLEAR (CLEAR); BILIRUBIN,URINE NEGATIVE (NEGATIVE); GLUCOSE, URINE (UA) NEGATIVE (NEGATIVE); KETONES,URINE NEGATIVE (NEGATIVE); LEUKOCYTE ESTERASE ,URINE NEGATIVE (NEGATIVE); NITRATE,URINE NEGATIVE (NEGATIVE); OCCULT BLOOD,URINE LARGE (NEGATIVE); PROTEIN,URINE POS 1+ (NEGATIVE); UROBILINOGEN,URINE 0.2 mg/dL (<=1.0)
[2018-02-19 21:41] LABS: BACTERIA,URINE Rare /HPF (None Seen); RBC,URINE 26-50 /HPF (0-2); SQUAMOUS EPITHELIAL CELL,UR Few /LPF (None Seen); WBC,URINE 0-2 /HPF (0-5)
[2018-02-19] MEDS ORDERED: ACETAMINOPHEN 500 MG TABLET PO ONE (22:00)
[2018-02-19] MEDS ORDERED: ONDANSETRON HCL 4 MG TABLET PO ONE (22:00)
[2018-02-19 22:50] VITALS: BP 124/69
== END 2018-02-19 23:25 | disposition home or self-care (01) ==
LOC: EMS 19:40
DX: O20.0 Threatened abortion (principal); O99.511 Diseases of the respiratory system complicating pregnancy, first trimester; J45.909 Unspecified asthma, uncomplicated; Z3A.01 Less than 8 weeks gestation of pregnancy; Z88.0 Allergy status to penicillin
CPT/HCPCS: 36415; 76801; 76817; 81001; 84702; 85025; 86901; 99285; Q0162

== ENCOUNTER 2018-02-21 12:06 | Emergency (ER) | payer MEDICARE, OTHER ==
[~2018-02-21] VITALS: Ht 160 cm; Wt 95.5 kg
[2018-02-21] MEDS ORDERED: LOPERAMIDE HCL 2 MG CAPSULE PO ONE (14:30)
[2018-02-21] MEDS ORDERED: ACETAMINOPHEN 500 MG TABLET PO ONE (14:30)
[2018-02-21 14:46] LABS: BASOPHILS % (AUTO) 0.5 % (0.0-2.0); EOSINOPHILS % (AUTO) 0.4 % (1.0-6.0); HEMATOCRIT 32.6 % (36-46); LYMPHOCYTES % (AUTO) 18.1 % (22.0-44.0); MEAN CORPUSCULAR HEMOGLOBIN 30.1 pg (26.0-34.0); MEAN CORPUSCULAR HGB CONC 33.7 G/dL (31.0-37.0); MEAN CORPUSCULAR VOLUME 89 fL (80-100); MONOCYTES # (AUTO) 0.7 K/uL (0.1-1.0); MONOCYTES % (AUTO) 6.3 % (2.0-9.0); NEUTROPHILS # (AUTO) 8.4 K/uL (1.8-7.7); NEUTROPHILS % (AUTO) 74.7 % (40.0-70.0); PLATELET COUNT (AUTO) 276 K/uL (150-450); RED BLOOD CELL COUNT(AUTO) 3.65 MIL/uL (4.00-5.20)
[2018-02-21] MEDS ORDERED: ONDANSETRON HCL 4 MG TABLET PO ONE (15:00)
[2018-02-21 16:08] VITALS: BP 106/57
== END 2018-02-21 16:18 | disposition home or self-care (01) ==
LOC: EMS 12:08
DX: O20.0 Threatened abortion (principal); O99.611 Diseases of the digestive system complicating pregnancy, first trimester; K52.9 Noninfective gastroenteritis and colitis, unspecified; Z3A.01 Less than 8 weeks gestation of pregnancy; Z88.0 Allergy status to penicillin
CPT/HCPCS: 36415; 84702; 85025; 99284; Q0162

== ENCOUNTER 2018-03-31 11:48 | Emergency (ER) | payer MEDICARE, OTHER ==
[~2018-03-31] VITALS: Ht 160 cm; Wt 95.5 kg
[2018-03-31] MEDS ORDERED: PREN1TAB80 PO (11:57)
[2018-03-31 12:31] VITALS: BP 106/48
[2018-03-31 12:41] LABS: BASOPHILS % (AUTO) 1.2 % (0.0-2.0); EOSINOPHILS % (AUTO) 0.8 % (1.0-6.0); HEMATOCRIT 33.2 % (36-46); HEMOGLOBIN 11.5 g/dL (12.0-16.0); LYMPHOCYTES # (AUTO) 2.3 K/uL (1.0-4.8); LYMPHOCYTES % (AUTO) 25.9 % (22.0-44.0); MEAN CORPUSCULAR HEMOGLOBIN 30.1 pg (26.0-34.0); MEAN CORPUSCULAR HGB CONC 34.6 G/dL (31.0-37.0); MEAN CORPUSCULAR VOLUME 87 fL (80-100); MONOCYTES # (AUTO) 0.5 K/uL (0.1-1.0); MONOCYTES % (AUTO) 5.6 % (2.0-9.0); NEUTROPHILS # (AUTO) 5.8 K/uL (1.8-7.7); NEUTROPHILS % (AUTO) 66.5 % (40.0-70.0); PLATELET COUNT (AUTO) 284 K/uL (150-450); RED BLOOD CELL COUNT(AUTO) 3.82 MIL/uL (4.00-5.20); RED CELL DISTRIBUTION WIDTH 13.9 % (11.5-14.5)
[2018-03-31 13:19] LABS: ANION GAP 8 mmol/L (8-16); CARBON DIOXIDE 23 mmol/L (22-29); CHLORIDE 103 mmol/L (98-107); CREATININE 0.67 mg/dL (0.60-1.30); GLOMERULAR FILTR. RATE CALC > 60 mL/min (>60); GLUCOSE,RANDOM 112 mg/dL (70-110); POTASSIUM 3.1 mmol/L (3.5-5.1); SODIUM SERUM 134 mmol/L (136-145); UREA NITROGEN, BLOOD 7 mg/dL (7-18)
[2018-03-31] MEDS ORDERED: ONDANSETRON HCL 4 MG TABLET PO ONE (13:30)
[2018-03-31 13:43] LABS: HCG,QUANTITATIVE 50823 mIU/mL (0-6)
== END 2018-03-31 13:35 | disposition home or self-care (01) ==
LOC: EMS 11:50
DX: O20.0 Threatened abortion (principal); F25.9 Schizoaffective disorder, unspecified; J45.909 Unspecified asthma, uncomplicated; Z3A.11 11 weeks gestation of pregnancy; Z88.0 Allergy status to penicillin
CPT/HCPCS: 36415; 76801; 76817; 80048; 84702; 85025; 99285; Q0162

== ENCOUNTER 2018-04-25 15:56 | Emergency (ER) | payer MEDICARE, OTHER ==
[~2018-04-25] VITALS: Ht 157.5 cm; Wt 105.0 kg
[~2018-04-25 15:56] MED LIST changes: +PREN1TAB80 PO
[2018-04-25] MEDS ORDERED: SODIUM CHLORIDE 0.9% 1,000 ML IV ONE (17:00)
[2018-04-25 17:07] LABS: BASOPHILS % (AUTO) 1.1 % (0.0-2.0); EOSINOPHILS % (AUTO) 0.9 % (1.0-6.0); HEMATOCRIT 30.5 % (36-46); HEMOGLOBIN 10.5 g/dL (12.0-16.0); LYMPHOCYTES # (AUTO) 2.6 K/uL (1.0-4.8); LYMPHOCYTES % (AUTO) 23.4 % (22.0-44.0); MEAN CORPUSCULAR HEMOGLOBIN 29.9 pg (26.0-34.0); MEAN CORPUSCULAR HGB CONC 34.5 G/dL (31.0-37.0); MEAN CORPUSCULAR VOLUME 87 fL (80-100); MONOCYTES # (AUTO) 0.7 K/uL (0.1-1.0); MONOCYTES % (AUTO) 6.3 % (2.0-9.0); NEUTROPHILS # (AUTO) 7.5 K/uL (1.8-7.7); NEUTROPHILS % (AUTO) 68.3 % (40.0-70.0); PLATELET COUNT (AUTO) 272 K/uL (150-450); RED BLOOD CELL COUNT(AUTO) 3.52 MIL/uL (4.00-5.20); RED CELL DISTRIBUTION WIDTH 13.2 % (11.5-14.5)
[2018-04-25 17:28] LABS: ANION GAP 11 mmol/L (8-16); CALCIUM, TOTAL 8.9 mg/dL (8.8-10.5); CARBON DIOXIDE 22 mmol/L (22-29); CHLORIDE 103 mmol/L (98-107); CREATININE 0.47 mg/dL (0.60-1.30); GLOMERULAR FILTR. RATE CALC > 60 mL/min (>60); GLUCOSE,RANDOM 86 mg/dL (70-110); POTASSIUM 3.3 mmol/L (3.5-5.1); SODIUM SERUM 136 mmol/L (136-145); UREA NITROGEN, BLOOD 5 mg/dL (7-18)
[2018-04-25] MEDS ORDERED: ONDANSETRON HCL 4 MG/2 ML VIAL IVP ONE (17:30)
[2018-04-25 17:57] LABS: ALANINE AMINOTRANSFERASE 10 U/L (12-78); ALBUMIN 2.6 g/dL (3.4-5.0); ALKALINE PHOSPHATASE 42 U/L (46-116); ASPARTATE AMINOTRANSFERASE 10 U/L (15-37); BILIRUBIN,TOTAL 0.3 mg/dL (0.1-1.0); HCG,QUANTITATIVE 37204 mIU/mL (0-6); LIPASE 100 U/L (73-393); TOTAL PROTEIN, SERUM 6.5 g/dL (6.4-8.2)
[2018-04-25 18:35] LABS: APPEARANCE,URINE CLOUDY (CLEAR); BILIRUBIN,URINE NEGATIVE (NEGATIVE); GLUCOSE, URINE (UA) NEGATIVE (NEGATIVE); KETONES,URINE NEGATIVE (NEGATIVE); LEUKOCYTE ESTERASE ,URINE TRACE (NEGATIVE); NITRATE,URINE NEGATIVE (NEGATIVE); OCCULT BLOOD,URINE LARGE (NEGATIVE); PROTEIN,URINE NEGATIVE (NEGATIVE); UROBILINOGEN,URINE 0.2 mg/dL (<=1.0)
[2018-04-25 18:53] LABS: BACTERIA,URINE Rare /HPF (None Seen); SQUAMOUS EPITHELIAL CELL,UR Moderate /LPF (None Seen)
[2018-04-25] MEDS ORDERED: POTASSIUM CHLORIDE 20 MEQ ER TABLET PO ONE (19:15)
[2018-04-25 19:32] VITALS: BP 112/59
== END 2018-04-25 19:45 | disposition home or self-care (01) ==
LOC: EMS 15:57
DX: O20.0 Threatened abortion (principal); O21.0 Mild hyperemesis gravidarum; R11.0 Nausea; R19.7 Diarrhea, unspecified; J45.909 Unspecified asthma, uncomplicated; Z3A.15 15 weeks gestation of pregnancy
CPT/HCPCS: 36415; 76805; 80053; 81001; 83690; 84702; 85025; 86901; 96360; 96374; 99285; J2405; J7030

== ENCOUNTER 2018-05-15 | Observation (INO) | payer MEDICARE, OTHER ==
[~2018-05-15] VITALS: Ht 160 cm; Wt 100.2 kg
[~2018-05-15] MED LIST changes: -ARIP5TAB8 PO; -LAMO25 PO
[2018-05-15] MEDS ORDERED: RINGERS SOLUTION,LACTATED 1,000 ML IV SCH (00:45)
[2018-05-15 05:21] VITALS: BP 110/57
== END 2018-05-15 04:25 | disposition home or self-care (01) ==
LOC: 4S
PROVIDERS: ADMIT Obstetrics & Gynecology; ATTEND Obstetrics & Gynecology
DX: O26.892 Other specified pregnancy related conditions, second trimester (principal); R10.30 Lower abdominal pain, unspecified; M54.5 Low back pain; N89.8 Other specified noninflammatory disorders of vagina; Z3A.21 21 weeks gestation of pregnancy
CPT/HCPCS: 59025; 76811; G0378; 96360; 96361

== ENCOUNTER 2018-08-19 05:58 | Observation (INO) | payer MEDICARE, OTHER ==
[~2018-08-19] VITALS: Ht 165.1 cm; Wt 102.5 kg
== END 2018-09-06 01:35 | disposition home or self-care (01) ==
LOC: 4S 09-06 00:45
PROVIDERS: ADMIT Obstetrics & Gynecology; ATTEND Obstetrics & Gynecology
DX: O62.9 Abnormality of forces of labor, unspecified (principal); Z3A.35 35 weeks gestation of pregnancy

== ENCOUNTER 2019-04-02 12:42 | Inpatient (IN) | payer MEDICARE, MEDICAID ==
[~2019-04-02] VITALS: Ht 162.6 cm; Wt 92.8 kg
[2019-04-02] MEDS ORDERED: LORazepam 2 MG/ML VIAL IM ONE ×2 (13:15→19:30)
[2019-04-02] MEDS ORDERED: HALOPERIDOL LACTATE 5 MG/ML VIAL IM ONE ×2 (13:15→19:30)
[2019-04-02] MEDS ORDERED: DiphenhydrAMINE HCL 50 MG/ML VIAL IM ONE ×2 (13:15→19:30)
[2019-04-02 13:29] LABS: BASOPHILS % (AUTO) 0.9 % (0.0-2.0); EOSINOPHILS % (AUTO) 0.1 % (1.0-6.0); HEMATOCRIT 38.5 % (36-46); HEMOGLOBIN 12.2 g/dL (12.0-16.0); LYMPHOCYTES # (AUTO) 2.5 K/uL (1.0-4.8); LYMPHOCYTES % (AUTO) 18.7 % (22.0-44.0); MEAN CORPUSCULAR HEMOGLOBIN 27.8 pg (26.0-34.0); MEAN CORPUSCULAR HGB CONC 31.6 G/dL (31.0-37.0); MEAN CORPUSCULAR VOLUME 88 fL (80-100); MONOCYTES # (AUTO) 1.2 K/uL (0.1-1.0); NEUTROPHILS # (AUTO) 9.4 K/uL (1.8-7.7); NEUTROPHILS % (AUTO) 71.3 % (40.0-70.0); PLATELET COUNT (AUTO) 340 K/uL (150-450); RED BLOOD CELL COUNT(AUTO) 4.38 MIL/uL (4.00-5.20); RED CELL DISTRIBUTION WIDTH 18.1 % (11.5-14.5)
[2019-04-02 13:38] LABS: ANION GAP 14 mmol/L (8-16); CALCIUM, TOTAL 9.9 mg/dL (8.8-10.5); CARBON DIOXIDE 24 mmol/L (22-29); CHLORIDE 104 mmol/L (98-107); CREATININE 1.01 mg/dL (0.60-1.30); GLOMERULAR FILTR. RATE CALC > 60 mL/min (>60); GLUCOSE,RANDOM 112 mg/dL (70-110); POTASSIUM 3.5 mmol/L (3.5-5.1); SODIUM SERUM 142 mmol/L (136-145); UREA NITROGEN, BLOOD 9 mg/dL (7-18)
[2019-04-02 13:43] LABS: ALANINE AMINOTRANSFERASE 19 U/L (12-78); ALBUMIN 3.9 g/dL (3.4-5.0); ALKALINE PHOSPHATASE 58 U/L (46-116); ASPARTATE AMINOTRANSFERASE 23 U/L (15-37); BILIRUBIN,TOTAL 0.6 mg/dL (0.1-1.0); TOTAL PROTEIN, SERUM 8.4 g/dL (6.4-8.2)
[2019-04-02 14:15] LABS: AMPHET/METH SCREEN,URINE NEGATIVE (NEGATIVE); BARBITURATE SCREEN, URINE NEGATIVE (NEGATIVE); BENZODIAZEPINES SCREEN,URINE NEGATIVE (NEGATIVE); CANNABINOID SCREEN,URINE NEGATIVE (NEGATIVE); COCAINE SCREEN,URINE NEGATIVE (NEGATIVE); METHADONE SCREEN, URINE NEGATIVE (NEGATIVE); OPIATE SCREEN,URINE NEGATIVE (NEGATIVE); PHENCYCLIDINE SCREEN,URINE NEGATIVE (NEGATIVE)
[2019-04-02] MEDS ORDERED: LORazepam 2 MG TABLET PO PRN (17:30)
[2019-04-02] MEDS ORDERED: ACETAMINOPHEN 325 MG TABLET PO PRN (17:30)
[2019-04-02] MEDS ORDERED: ZOLPIDEM TARTRATE 10 MG TABLET PO PRN ×2 (17:30→19:15)
[2019-04-02] MEDS ORDERED: IBUPROFEN 400 MG TABLET PO PRN (17:30)
[2019-04-02] MEDS ORDERED: HALOPERIDOL 5 MG TABLET PO PRN (17:30)
[2019-04-02 20:18] VITALS: BP 150/88
[2019-04-02] MEDS ORDERED: ONDANSETRON HCL 4 MG TABLET PO PRN (21:00)
[2019-04-02] MEDS ORDERED: PETROLATUM,WHITE 28 GM JELLY TP PRN (21:00)
[2019-04-02] MEDS ORDERED: LOPERAMIDE HCL 2 MG CAPSULE PO PRN (21:00)
[2019-04-02] MEDS ORDERED: ALBUTEROL SULFATE HFA 90 MCG/PUFF 8 GM INHALER IH PRN (21:00)
[2019-04-02] MEDS ORDERED: DOCUSATE SODIUM 100 MG CAPSULE PO PRN (21:00)
[2019-04-02] MEDS ORDERED: CloNIDine HCL 0.1 MG TABLET PO PRN (21:00)
[2019-04-02] MEDS ORDERED: MAGNESIUM HYDROXIDE SUSPENSION 30 ML UDCUP PO PRN (21:00)
[2019-04-02] MEDS ORDERED: MAG HYDROX/AL HYDROX/SIMETH ES 30 ML SUSPENSION UDCUP PO PRN (21:00)
[2019-04-02] MEDS ORDERED: GuaiFENesin/D-METHORPHAN [SUGAR-FREE] 200-20MG/10 ML SYRUP UDCUP PO PRN (21:00)
[2019-04-03 01:49] VITALS: BP 155/105
[2019-04-03] MEDS: LORazepam 2 MG TABLET PO PRN ×2 (01:56→08:23)
[2019-04-03 03:07] VITALS: BP 127/68
[2019-04-03 06:32] LABS: HEMOGLOBIN A1C 5.3 % (4.5-6.2)
[2019-04-03 06:47] LABS: CHOL/HDL RATIO 4.2 (3.9-5.7); THYROID STIMULATING HORMONE 1.01 uIU/mL (0.36-3.74)
[2019-04-03] MEDS: HALOPERIDOL 5 MG TABLET PO PRN (08:23)
[2019-04-03 09:38] VITALS: BP 155/101
[2019-04-03 19:35] VITALS: BP 149/91
[2019-04-03] MEDS ORDERED: DiphenhydrAMINE HCL 50 MG/ML VIAL IM ONE (20:45)
[2019-04-03] MEDS ORDERED: HALOPERIDOL LACTATE 5 MG/ML VIAL IM ONE (20:45)
[2019-04-03] MEDS ORDERED: LORazepam 2 MG/ML VIAL IM ONE (20:45)
[2019-04-03 20:48] VITALS: BP 116/67
[2019-04-04] MEDS: HALOPERIDOL 5 MG TABLET PO PRN ×2 (08:06→16:47)
[2019-04-04] MEDS: LamoTRIgine 100 MG TABLET PO SCH ×2 (08:06→16:42)
[2019-04-04] MEDS ORDERED: ARIPiprazole 15 MG TABLET PO SCH ×2 (09:00→21:00)
[2019-04-04 12:58] VITALS: BP 130/74
[2019-04-04 16:13] VITALS: BP 124/72
[2019-04-05 02:59] VITALS: BP 138/92
[2019-04-05] MEDS: LORazepam 2 MG TABLET PO PRN (08:21)
[2019-04-05] MEDS: LamoTRIgine 100 MG TABLET PO SCH (08:23)
[2019-04-05] MEDS ORDERED: ARIP15TA2 PO (11:44)
[2019-04-05] MEDS ORDERED: LAMO100 PO (11:45)
== END 2019-04-05 15:00 | disposition home or self-care (01) | DRG 885 ==
LOC: EMS 12:43 → 3EX 18:34
PROVIDERS: ADMIT Psychiatry & Neurology Psychiatry; ATTEND Psychiatry & Neurology Psychiatry
DX: F31.9 Bipolar disorder, unspecified (principal); D64.9 Anemia, unspecified; D72.829 Elevated white blood cell count, unspecified; E78.5 Hyperlipidemia, unspecified; F20.9 Schizophrenia, unspecified; J45.909 Unspecified asthma, uncomplicated; K59.00 Constipation, unspecified; Z88.0 Allergy status to penicillin; Z98.891 History of uterine scar from previous surgery; Z79.899 Other long term (current) drug therapy
CPT/HCPCS: 83036; 84443; G0378; G0480; J1200; J1630; J2060

== ENCOUNTER 2019-05-27 13:08 | Emergency (ER) | payer MEDICARE, MEDICAID ==
[~2019-05-27] VITALS: Ht 160 cm; Wt 93.2 kg
[~2019-05-27 13:08] MED LIST changes: +ARIP15TA2 PO; +LAMO100 PO; -PREN1TAB80 PO
[2019-05-27] MEDS ORDERED: BACITRACIN 0.9 GM PACKET OINTMENT TP ONE (14:45)
[2019-05-27 15:00] VITALS: BP 148/88
== END 2019-05-27 15:10 | disposition home or self-care (01) ==
LOC: EMS 13:10
DX: S91.312A Laceration without foreign body, left foot, initial encounter (principal); J45.909 Unspecified asthma, uncomplicated; F31.9 Bipolar disorder, unspecified; F20.9 Schizophrenia, unspecified; Z88.0 Allergy status to penicillin; W45.8XXA Other foreign body or object entering through skin, initial encounter; Y93.89 Activity, other specified; Y92.89 Other specified places as the place of occurrence of the external cause; Y99.8 Other external cause status

== ENCOUNTER 2019-07-05 03:53 | Emergency (ER) | payer MEDICARE, OTHER ==
[~2019-07-05] VITALS: Ht 160 cm; Wt 95.5 kg
[2019-07-05] MEDS ORDERED: ONDANSETRON HCL 4 MG TABLET PO ONE (05:45)
[2019-07-05 06:09] VITALS: BP 153/96
== END 2019-07-05 06:17 | disposition home or self-care (01) ==
LOC: EMS 03:56
DX: N94.6 Dysmenorrhea, unspecified (principal); J45.909 Unspecified asthma, uncomplicated; F20.9 Schizophrenia, unspecified; F31.9 Bipolar disorder, unspecified; Z79.899 Other long term (current) drug therapy; Z88.0 Allergy status to penicillin
CPT/HCPCS: 36415; 84702; 99283; Q0162

== ENCOUNTER 2019-08-09 16:14 | Emergency (ER) | payer MEDICARE, OTHER ==
[~2019-08-09] VITALS: Ht 160 cm; Wt 95.5 kg
[2019-08-09 17:55] LABS: BASOPHILS % (AUTO) 0.6 % (0.0-2.0); EOSINOPHILS % (AUTO) 1.1 % (1.0-6.0); HEMATOCRIT 33.9 % (36-46); LYMPHOCYTES # (AUTO) 2.8 K/uL (1.0-4.8); LYMPHOCYTES % (AUTO) 35.3 % (22.0-44.0); MEAN CORPUSCULAR HEMOGLOBIN 28.5 pg (26.0-34.0); MEAN CORPUSCULAR HGB CONC 32.3 G/dL (31.0-37.0); MEAN CORPUSCULAR VOLUME 88 fL (80-100); MONOCYTES # (AUTO) 0.5 K/uL (0.1-1.0); MONOCYTES % (AUTO) 6.3 % (2.0-9.0); NEUTROPHILS # (AUTO) 4.4 K/uL (1.8-7.7); NEUTROPHILS % (AUTO) 56.7 % (40.0-70.0); PLATELET COUNT (AUTO) 358 K/uL (150-450); RED BLOOD CELL COUNT(AUTO) 3.85 MIL/uL (4.00-5.20); RED CELL DISTRIBUTION WIDTH 15.9 % (11.5-14.5)
[2019-08-09 18:42] VITALS: BP 142/83
== END 2019-08-09 19:00 | disposition home or self-care (01) ==
LOC: EMS 16:15
DX: O99.011 Anemia complicating pregnancy, first trimester (principal); O26.851 Spotting complicating pregnancy, first trimester; O99.511 Diseases of the respiratory system complicating pregnancy, first trimester; O99.341 Other mental disorders complicating pregnancy, first trimester; F31.9 Bipolar disorder, unspecified; Z3A.01 Less than 8 weeks gestation of pregnancy; Z98.890 Other specified postprocedural states; Z79.899 Other long term (current) drug therapy; Z88.0 Allergy status to penicillin
CPT/HCPCS: 76801; 76817; 86901

== ENCOUNTER 2020-10-05 07:34 | Inpatient (IN) | payer MEDICARE, MEDICAID ==
[~2020-10-05] VITALS: Ht 162.6 cm; Wt 90.0 kg
[~2020-10-05 07:34] MED LIST changes: -LAMO100 PO
[2020-10-05] MEDS ORDERED: LORazepam 2 MG/ML VIAL IM ONE (11:30)
[2020-10-05] MEDS ORDERED: DiphenhydrAMINE HCL 50 MG/ML VIAL IM ONE (11:30)
[2020-10-05] MEDS ORDERED: HALOPERIDOL LACTATE 5 MG/ML VIAL IM ONE (11:30)
[2020-10-05 12:52] LABS: COVID AG,FIA SOURCE NASOPHARYNGEAL
[2020-10-05 15:50] LABS: BASOPHILS % (AUTO) 0.6 % (0.0-2.0); HEMOGLOBIN 9.8 g/dL (12.0-16.0); LYMPHOCYTES # (AUTO) 2.3 K/uL (1.0-4.8); LYMPHOCYTES % (AUTO) 25.7 % (22.0-44.0); MEAN CORPUSCULAR HEMOGLOBIN 27.4 pg (26.0-34.0); MEAN CORPUSCULAR HGB CONC 31.5 G/dL (31.0-37.0); MEAN CORPUSCULAR VOLUME 87 fL (80-100); MONOCYTES # (AUTO) 0.8 K/uL (0.1-1.0); MONOCYTES % (AUTO) 9.3 % (2.0-9.0); NEUTROPHILS # (AUTO) 5.5 K/uL (1.8-7.7); NEUTROPHILS % (AUTO) 63.4 % (40.0-70.0); PLATELET COUNT (AUTO) 324 K/uL (150-450); RED BLOOD CELL COUNT(AUTO) 3.56 MIL/uL (4.00-5.20); RED CELL DISTRIBUTION WIDTH 17.2 % (11.5-14.5)
[2020-10-05 16:20] LABS: ALANINE AMINOTRANSFERASE 34 U/L (12-78); ALBUMIN 3.3 g/dL (3.4-5.0); ALKALINE PHOSPHATASE 55 U/L (46-116); ANION GAP 8 mmol/L (8-16); ASPARTATE AMINOTRANSFERASE 39 U/L (15-37); BILIRUBIN,TOTAL 0.7 mg/dL (0.1-1.0); CALCIUM, TOTAL 9.3 mg/dL (8.8-10.5); CARBON DIOXIDE 26 mmol/L (22-29); CHLORIDE 106 mmol/L (98-107); GLUCOSE,RANDOM 73 mg/dL (70-110); SODIUM SERUM 140 mmol/L (136-145); TOTAL PROTEIN, SERUM 7.3 g/dL (6.4-8.2); UREA NITROGEN, BLOOD 22 mg/dL (7-18)
[2020-10-05 16:26] LABS: CREATININE 1.24 mg/dL (0.60-1.30); GLOMERULAR FILTR. RATE CALC 59 mL/min (>60)
[2020-10-05] MEDS ORDERED: LORazepam 2 MG TABLET PO PRN (16:30)
[2020-10-05] MEDS ORDERED: ZOLPIDEM TARTRATE 10 MG TABLET PO PRN (16:30)
[2020-10-05] MEDS ORDERED: HALOPERIDOL 5 MG TABLET PO PRN (16:30)
[2020-10-05 16:43] LABS: HCG,QUANTITATIVE 1 mIU/mL (0-6)
[2020-10-05] MEDS ORDERED: OMEPRAZOLE 20 MG CAPSULE PO PRN (17:30)
[2020-10-05] MEDS ORDERED: BENZOCAINE/MENTHOL LOZENGE PO PRN (17:30)
[2020-10-05] MEDS ORDERED: BACITRACIN 28 GM OINTMENT TP PRN (17:30)
[2020-10-05] MEDS ORDERED: PETROLATUM,WHITE 28 GM JELLY TP PRN (17:30)
[2020-10-05] MEDS ORDERED: MAGNESIUM HYDROXIDE SUSPENSION 30 ML UDCUP PO PRN (17:30)
[2020-10-05] MEDS ORDERED: MAG HYDROX/AL HYDROX/SIMETH ES 30 ML SUSPENSION UDCUP PO PRN (17:30)
[2020-10-05] MEDS ORDERED: ALBUTEROL SULFATE HFA 90 MCG/PUFF 8 GM INHALER IH PRN (17:30)
[2020-10-05] MEDS ORDERED: LOPERAMIDE HCL 2 MG CAPSULE PO PRN (17:30)
[2020-10-05] MEDS ORDERED: ONDANSETRON HCL 4 MG TABLET PO PRN (17:30)
[2020-10-05] MEDS ORDERED: CloNIDine HCL 0.1 MG TABLET PO PRN (17:30)
[2020-10-05] MEDS ORDERED: ACETAMINOPHEN 325 MG TABLET PO PRN (17:30)
[2020-10-05 18:07] VITALS: BP 112/61
[2020-10-05] MEDS: DOCUSATE SODIUM 100 MG CAPSULE PO PRN (20:42)
[2020-10-05] MEDS: ARIPiprazole 15 MG TABLET PO SCH (20:51)
[2020-10-06 08:02] LABS: FREE T4 (FREE THYROXINE) 1.17 ng/dL (0.76-1.46); THYROID STIMULATING HORMONE 0.82 uIU/mL (0.36-3.74)
[2020-10-06] MEDS: LamoTRIgine 100 MG TABLET PO SCH ×2 (08:07→17:23)
[2020-10-06 08:15] VITALS: BP 100/61
[2020-10-06 16:14] VITALS: BP 107/65
[2020-10-06] MEDS: ARIPiprazole 15 MG TABLET PO SCH (20:09)
[2020-10-06 20:15] VITALS: BP 112/60
[2020-10-07 04:25] LABS: APPEARANCE,URINE CLEAR (CLEAR); BILIRUBIN,URINE NEGATIVE (NEGATIVE); GLUCOSE, URINE (UA) NEGATIVE (NEGATIVE); KETONES,URINE TRACE mg/dL (NEGATIVE); LEUKOCYTE ESTERASE ,URINE NEGATIVE (NEGATIVE); NITRATE,URINE NEGATIVE (NEGATIVE); OCCULT BLOOD,URINE LARGE (NEGATIVE); PROTEIN,URINE SEE CONFIRM (NEGATIVE); UROBILINOGEN,URINE 0.2 mg/dL (<=1.0)
[2020-10-07 04:28] LABS: AMPHET/METH SCREEN,URINE NEGATIVE (NEGATIVE); BARBITURATE SCREEN, URINE NEGATIVE (NEGATIVE); BENZODIAZEPINES SCREEN,URINE NEGATIVE (NEGATIVE); CANNABINOID SCREEN,URINE NEGATIVE (NEGATIVE); COCAINE SCREEN,URINE NEGATIVE (NEGATIVE); METHADONE SCREEN, URINE NEGATIVE (NEGATIVE); OPIATE SCREEN,URINE NEGATIVE (NEGATIVE)
[2020-10-07 04:30] LABS: PHENCYCLIDINE SCREEN,URINE NEGATIVE (NEGATIVE)
[2020-10-07 04:40] LABS: SULFOSALICYLIC ACID,URINE Trace (Negative)
[2020-10-07 04:41] LABS: BACTERIA,URINE Few /HPF (None Seen); HYALINE CASTS, URINE 0-2 /LPF (None Seen); MUCUS,URINE Moderate LPF (None Seen); SQUAMOUS EPITHELIAL CELL,UR Few /LPF (None Seen)
[2020-10-07 08:00] VITALS: BP 104/58
[2020-10-07] MEDS: LamoTRIgine 100 MG TABLET PO SCH ×2 (08:32→16:15)
[2020-10-07] MEDS: DOCUSATE SODIUM 100 MG CAPSULE PO PRN (15:04)
[2020-10-07 16:00] VITALS: BP 93/60
[2020-10-07] MEDS: ARIPiprazole 15 MG TABLET PO SCH (20:00)
[2020-10-07 21:45] VITALS: BP 91/58
[2020-10-07] MEDS: IBUPROFEN 600 MG TABLET PO PRN (21:45)
[2020-10-08 08:00] VITALS: BP 107/57
[2020-10-08] MEDS: LamoTRIgine 100 MG TABLET PO SCH (08:00)
[2020-10-08] MEDS: DOCUSATE SODIUM 100 MG CAPSULE PO PRN (08:01)
[2020-10-08] MEDS: IBUPROFEN 600 MG TABLET PO PRN (09:55)
[2020-10-08] MEDS ORDERED: LAMO100 PO (10:30)
== END 2020-10-08 10:40 | disposition home or self-care (01) | DRG 885 ==
LOC: EMS 07:40 → 3EC 14:29
PROVIDERS: ADMIT Psychiatry & Neurology Psychiatry; ATTEND Psychiatry & Neurology Psychiatry
DX: F31.9 Bipolar disorder, unspecified (principal); E66.9 Obesity, unspecified; E78.5 Hyperlipidemia, unspecified; J45.909 Unspecified asthma, uncomplicated; F20.9 Schizophrenia, unspecified; Z88.0 Allergy status to penicillin; D64.9 Anemia, unspecified; K59.00 Constipation, unspecified
CPT/HCPCS: 80307; 84439; 84443; 87426; 99291; G0480; J1200; J1630; J2060

== ENCOUNTER 2021-07-19 10:13 | Inpatient (IN) | payer MEDICARE, MEDICAID ==
[~2021-07-19] VITALS: Ht 165.1 cm; Wt 107.0 kg
[~2021-07-19 10:13] MED LIST changes: -ARIP15TA2 PO; +ARIP15TA27 PO; +LAMO100 PO; +MELO-107 PO
[2021-07-19 16:14] VITALS: BP 127/65
[2021-07-19] MEDS ORDERED: INFLUENZA VIRUS VACCINE QVS 2021-22 (6MO+)/PF 60 MCG/0.5 ML SYRINGE IM. ONE (19:45)
[2021-07-20] MEDS: ZOLPIDEM TARTRATE 10 MG TABLET PO PRN ×2 (00:05→21:35)
[2021-07-20] MEDS: LORazepam 2 MG TABLET PO PRN ×3 (00:05→16:14)
[2021-07-20 00:38] VITALS: BP 127/79
[2021-07-20] MEDS: MELOXICAM 7.5 MG TABLET PO SCH (08:22)
[2021-07-20 08:31] VITALS: BP 135/90
[2021-07-20] MEDS ORDERED: LOPERAMIDE HCL 2 MG CAPSULE PO PRN (08:45)
[2021-07-20] MEDS ORDERED: ONDANSETRON HCL 4 MG TABLET PO PRN (08:45)
[2021-07-20] MEDS ORDERED: BENZOCAINE/MENTHOL LOZENGE PO PRN (08:45)
[2021-07-20] MEDS ORDERED: OMEPRAZOLE 20 MG CAPSULE PO PRN (08:45)
[2021-07-20] MEDS ORDERED: ALBUTEROL SULFATE HFA 90 MCG/PUFF 8 GM INHALER IH PRN (08:45)
[2021-07-20] MEDS ORDERED: DOCUSATE SODIUM 100 MG CAPSULE PO PRN (08:45)
[2021-07-20] MEDS ORDERED: CloNIDine HCL 0.1 MG TABLET PO PRN (08:45)
[2021-07-20] MEDS ORDERED: BACITRACIN 28 GM OINTMENT TP PRN (08:45)
[2021-07-20] MEDS ORDERED: MAGNESIUM HYDROXIDE SUSPENSION 30 ML UDCUP PO PRN (08:45)
[2021-07-20] MEDS ORDERED: MAG HYDROX/AL HYDROX/SIMETH ES 30 ML SUSPENSION UDCUP PO PRN (08:45)
[2021-07-20] MEDS ORDERED: PETROLATUM,WHITE 28 GM JELLY TP PRN (08:45)
[2021-07-20 16:11] VITALS: BP 128/82
[2021-07-20] MEDS: LamoTRIgine 100 MG TABLET PO SCH (16:58)
[2021-07-20] MEDS: ARIPiprazole 15 MG TABLET PO SCH (20:27)
[2021-07-21 02:28] VITALS: BP 117/68
[2021-07-21] MEDS: LORazepam 2 MG TABLET PO PRN ×2 (02:46→18:39)
[2021-07-21 08:07] VITALS: BP 133/79
[2021-07-21] MEDS: LamoTRIgine 100 MG TABLET PO SCH ×2 (08:20→16:30)
[2021-07-21] MEDS: MELOXICAM 7.5 MG TABLET PO SCH (08:20)
[2021-07-21] MEDS: IBUPROFEN 600 MG TABLET PO PRN ×2 (11:48→20:49)
[2021-07-21] MEDS: ACETAMINOPHEN 325 MG TABLET PO PRN ×2 (13:59→18:39)
[2021-07-21 16:05] VITALS: BP 129/71
[2021-07-21] MEDS: ARIPiprazole 15 MG TABLET PO SCH (20:48)
[2021-07-21 20:50] VITALS: BP 125/80
[2021-07-21] MEDS: ZOLPIDEM TARTRATE 10 MG TABLET PO PRN (22:12)
[2021-07-22 00:19] VITALS: BP 126/78
[2021-07-22 08:18] VITALS: BP 121/77
[2021-07-22] MEDS: MELOXICAM 7.5 MG TABLET PO SCH (08:29)
[2021-07-22] MEDS: LamoTRIgine 100 MG TABLET PO SCH ×2 (08:29→16:48)
[2021-07-22] MEDS: IBUPROFEN 600 MG TABLET PO PRN (08:30)
[2021-07-22 09:35] LABS: BASOPHILS % (AUTO) 0.9 % (0.0-2.0); EOSINOPHILS % (AUTO) 1.2 % (1.0-6.0); HEMATOCRIT 35.5 % (36-46); HEMOGLOBIN 11.4 g/dL (12.0-16.0); LYMPHOCYTES # (AUTO) 1.8 K/uL (1.0-4.8); LYMPHOCYTES % (AUTO) 32.6 % (22.0-44.0); MEAN CORPUSCULAR HEMOGLOBIN 30.1 pg (26.0-34.0); MEAN CORPUSCULAR HGB CONC 32.2 G/dL (31.0-37.0); MEAN CORPUSCULAR VOLUME 93 fL (80-100); MONOCYTES # (AUTO) 0.3 K/uL (0.1-1.0); MONOCYTES % (AUTO) 4.5 % (2.0-9.0); NEUTROPHILS # (AUTO) 3.4 K/uL (1.8-7.7); NEUTROPHILS % (AUTO) 60.8 % (40.0-70.0); PLATELET COUNT (AUTO) 348 K/uL (150-450); RED CELL DISTRIBUTION WIDTH 13.6 % (11.5-14.5)
[2021-07-22 09:51] LABS: HEMOGLOBIN A1C 5.3 % (3.8-5.6)
[2021-07-22 09:58] LABS: ALANINE AMINOTRANSFERASE 47 U/L (12-78); ALBUMIN 3.7 g/dL (3.4-5.0); ALKALINE PHOSPHATASE 41 U/L (46-116); ANION GAP 11 mmol/L (8-16); ASPARTATE AMINOTRANSFERASE 33 U/L (15-37); BILIRUBIN,TOTAL 0.3 mg/dL (0.1-1.0); CALCIUM, TOTAL 9.1 mg/dL (8.8-10.5); CARBON DIOXIDE 30 mmol/L (22-29); CHLORIDE 105 mmol/L (98-107); CHOLESTEROL 170 mg/dL (131-200); CREATININE 0.88 mg/dL (0.60-1.30); FREE T4 (FREE THYROXINE) 1.22 ng/dL (0.76-1.46); GLOMERULAR FILTR. RATE CALC > 60 mL/min (>60); GLUCOSE,RANDOM 105 mg/dL (70-110); HCG,QUANTITATIVE < 1 mIU/mL (0-6); HDL CHOLESTEROL 43 mg/dL (40-60); LDL CHOL (CALC.) 108 mg/dL (0-130); POTASSIUM 3.6 mmol/L (3.5-5.1); SODIUM SERUM 146 mmol/L (136-145); TOTAL PROTEIN, SERUM 7.8 g/dL (6.4-8.2); TRIGLYCERIDES 97 mg/dL (15-150); UREA NITROGEN, BLOOD 16 mg/dL (7-18)
[2021-07-22 10:07] LABS: B-TYPE NATRIURETIC PEPTIDE 45 pg/mL (0-100)
[2021-07-22] MEDS: LORazepam 2 MG TABLET PO PRN ×2 (10:38→16:48)
[2021-07-22 16:14] VITALS: BP 143/83
[2021-07-22] MEDS: ZOLPIDEM TARTRATE 10 MG TABLET PO PRN (20:28)
[2021-07-23 00:24] VITALS: BP 133/86
[2021-07-23] MEDS: IBUPROFEN 600 MG TABLET PO PRN ×3 (03:11→20:26)
[2021-07-23] MEDS: ARIPiprazole 15 MG TABLET PO SCH (08:17)
[2021-07-23] MEDS: LamoTRIgine 100 MG TABLET PO SCH ×2 (08:17→16:30)
[2021-07-23] MEDS: MELOXICAM 7.5 MG TABLET PO SCH (08:17)
[2021-07-23 08:22] VITALS: BP 121/74
[2021-07-23] MEDS: LORazepam 2 MG TABLET PO PRN ×3 (08:22→22:47)
[2021-07-23] MEDS: ACETAMINOPHEN 325 MG TABLET PO PRN (15:07)
[2021-07-23 16:59] VITALS: BP 118/72
[2021-07-23] MEDS: ZOLPIDEM TARTRATE 10 MG TABLET PO PRN (20:22)
[2021-07-24 07:31] LABS: COVID AG,FIA SOURCE NASAL SWAB
[2021-07-24] MEDS: ARIPiprazole 15 MG TABLET PO SCH (08:33)
[2021-07-24] MEDS: LORazepam 2 MG TABLET PO PRN ×2 (08:34→16:50)
[2021-07-24] MEDS: LamoTRIgine 100 MG TABLET PO SCH ×2 (08:34→16:50)
[2021-07-24] MEDS: MELOXICAM 7.5 MG TABLET PO SCH (08:34)
[2021-07-24] MEDS: IBUPROFEN 600 MG TABLET PO PRN ×2 (13:47→21:35)
[2021-07-24 16:43] VITALS: BP 120/64
[2021-07-24] MEDS: ACETAMINOPHEN 325 MG TABLET PO PRN ×2 (16:49→22:16)
[2021-07-25] MEDS: ACETAMINOPHEN 325 MG TABLET PO PRN ×4 (02:16→23:48)
[2021-07-25 02:31] VITALS: BP 128/82
[2021-07-25] MEDS: IBUPROFEN 600 MG TABLET PO PRN ×2 (03:35→12:23)
[2021-07-25] MEDS: LORazepam 2 MG TABLET PO PRN ×3 (07:50→18:34)
[2021-07-25] MEDS: HALOPERIDOL 5 MG TABLET PO PRN ×2 (07:50→12:23)
[2021-07-25] MEDS: ARIPiprazole 15 MG TABLET PO SCH (07:51)
[2021-07-25] MEDS: MELOXICAM 7.5 MG TABLET PO SCH (07:51)
[2021-07-25] MEDS: LamoTRIgine 100 MG TABLET PO SCH ×2 (07:52→16:14)
[2021-07-25 08:42] VITALS: BP 110/60
[2021-07-25 16:02] VITALS: BP 118/70
[2021-07-25] MEDS: ZOLPIDEM TARTRATE 10 MG TABLET PO PRN (23:48)
[2021-07-26] VITALS: BP 115/62
[2021-07-26] MEDS: IBUPROFEN 600 MG TABLET PO PRN ×2 (04:39→16:02)
[2021-07-26] MEDS: ARIPiprazole 15 MG TABLET PO SCH (08:11)
[2021-07-26] MEDS: MELOXICAM 7.5 MG TABLET PO SCH (08:11)
[2021-07-26] MEDS: LORazepam 2 MG TABLET PO PRN ×2 (08:12→14:38)
[2021-07-26] MEDS: LamoTRIgine 100 MG TABLET PO SCH ×2 (08:12→16:02)
[2021-07-26 08:28] VITALS: BP 128/71
[2021-07-26] MEDS: DICLOFENAC SODIUM 1% 100 GM GEL [2GM] TP PRN ×2 (08:53→21:33)
[2021-07-26] MEDS: ACETAMINOPHEN 325 MG TABLET PO PRN (08:54)
[2021-07-26 16:04] VITALS: BP 131/76
[2021-07-26] MEDS: ZOLPIDEM TARTRATE 10 MG TABLET PO PRN (21:32)
[2021-07-27 00:08] VITALS: BP 118/75
[2021-07-27] MEDS ORDERED: MELOXICAM 7.5 MG TABLET PO SCH (07:00)
[2021-07-27 08:00] VITALS: BP 131/76
[2021-07-27] MEDS: ARIPiprazole 15 MG TABLET PO SCH (08:09)
[2021-07-27] MEDS: LamoTRIgine 100 MG TABLET PO SCH ×2 (08:09→16:05)
[2021-07-27] MEDS: LORazepam 2 MG TABLET PO PRN ×2 (08:12→13:50)
[2021-07-27] MEDS ORDERED: ARIP15TA27 PO (17:24)
[2021-07-27] MEDS ORDERED: LAMO100 PO (17:25)
== END 2021-07-27 17:45 | disposition home or self-care (01) | DRG 885 ==
LOC: B2X 15:38
PROVIDERS: ADMIT Psychiatry & Neurology Psychiatry; ATTEND Psychiatry & Neurology Psychiatry
DX: F25.9 Schizoaffective disorder, unspecified (principal); F22 Delusional disorders; E78.5 Hyperlipidemia, unspecified; E66.9 Obesity, unspecified; F41.9 Anxiety disorder, unspecified; J45.909 Unspecified asthma, uncomplicated; K59.00 Constipation, unspecified; Z91.14 Patient's other noncompliance with medication regimen; Z68.39 Body mass index [BMI] 39.0-39.9, adult; Z88.0 Allergy status to penicillin
CPT/HCPCS: 80053; 80061; 83036; 83880; 84436; 84439; 84443; 84702; 85025; 86592; 87081; G0480

== ENCOUNTER 2022-05-10 18:20 | Emergency (ER) | payer MEDICARE, OTHER ==
[~2022-05-10] VITALS: Ht 165.1 cm; Wt 84.1 kg
[~2022-05-10 18:20] MED LIST changes: -MELO-107 PO; +MELO-381 PO
[2022-05-10] MEDS ORDERED: SODIUM CHLORIDE 0.9% 1,000 ML IV ONE (18:45)
[2022-05-10] MEDS ORDERED: KETOROLAC TROMETHAMINE 30 MG/ML VIAL IVP ONE (18:45)
[2022-05-10] MEDS ORDERED: ONDANSETRON HCL 4 MG/2 ML VIAL IVP ONE (18:45)
[2022-05-10 18:50] LABS: BASOPHILS % (AUTO) 1.2 % (0.0-2.0); EOSINOPHILS % (AUTO) 1.5 % (1.0-6.0); HEMATOCRIT 35.1 % (36-46); HEMOGLOBIN 11.5 g/dL (12.0-16.0); LYMPHOCYTES # (AUTO) 3.6 K/uL (1.0-4.8); LYMPHOCYTES % (AUTO) 39.3 % (22.0-44.0); MEAN CORPUSCULAR HEMOGLOBIN 29.6 pg (26.0-34.0); MEAN CORPUSCULAR HGB CONC 32.8 G/dL (31.0-37.0); MEAN CORPUSCULAR VOLUME 90 fL (80-100); MONOCYTES # (AUTO) 0.6 K/uL (0.1-1.0); MONOCYTES % (AUTO) 6.8 % (2.0-9.0); NEUTROPHILS # (AUTO) 4.7 K/uL (1.8-7.7); NEUTROPHILS % (AUTO) 51.2 % (40.0-70.0); PLATELET COUNT (AUTO) 279 K/uL (150-450); RED BLOOD CELL COUNT(AUTO) 3.89 MIL/uL (4.00-5.20); RED CELL DISTRIBUTION WIDTH 14.9 % (11.5-14.5)
[2022-05-10 18:57] VITALS: BP 120/85
[2022-05-10 19:14] LABS: ANION GAP 12 mmol/L (8-16); CARBON DIOXIDE 23 mmol/L (22-29); CHLORIDE 106 mmol/L (98-107); CREATININE 0.94 mg/dL (0.60-1.30); GLOMERULAR FILTR. RATE CALC > 60 mL/min (>60); GLUCOSE,RANDOM 96 mg/dL (70-110); POTASSIUM 3.7 mmol/L (3.5-5.1); SODIUM SERUM 141 mmol/L (136-145); UREA NITROGEN, BLOOD 11 mg/dL (7-18)
[2022-05-10 19:25] LABS: ALANINE AMINOTRANSFERASE 17 U/L (12-78); ALBUMIN 3.5 g/dL (3.4-5.0); ALKALINE PHOSPHATASE 57 U/L (46-116); ASPARTATE AMINOTRANSFERASE 15 U/L (15-37); BILIRUBIN,TOTAL 0.4 mg/dL (0.1-1.0); HCG,QUANTITATIVE 5 mIU/mL (0-6); TOTAL PROTEIN, SERUM 7.4 g/dL (6.4-8.2)
[2022-05-10] MEDS ORDERED: ONDA-104 PO (19:50)
[2022-05-10] MEDS ORDERED: IBUP-2070 PO (19:50)
== END 2022-05-10 20:21 | disposition home or self-care (01) ==
LOC: EMS 18:21
DX: R07.89 Other chest pain (principal); J45.909 Unspecified asthma, uncomplicated; F31.9 Bipolar disorder, unspecified; F20.9 Schizophrenia, unspecified; M79.602 Pain in left arm; M79.601 Pain in right arm; Z87.42 Personal history of other diseases of the female genital tract; Z90.49 Acquired absence of other specified parts of digestive tract; Z98.890 Other specified postprocedural states; Z88.0 Allergy status to penicillin
CPT/HCPCS: 99285; 96374; 71045; 96361; 96375; 80053; 84484; 84702; 85025; 36415; 93005; J1885; J2405; J7030

== ENCOUNTER 2024-03-14 00:25 | Inpatient (IN) | payer MEDICARE, MEDICAID ==
[~2024-03-14] VITALS: Ht 160 cm; Wt 89.4 kg
[~2024-03-14 00:25] MED LIST changes: +IBUP-1492 PO; +LAMO-24 PO; -LAMO100 PO; -MELO-381 PO; +ONDA-104 PO
[2024-03-14] MEDS: HALOPERIDOL LACTATE 5 MG/ML VIAL IM ONE (01:12)
[2024-03-14] MEDS: DiphenhydrAMINE HCL 50 MG/ML VIAL IM ONE (01:12)
[2024-03-14] MEDS: LORazepam 2 MG/ML VIAL IM ONE (01:13)
[2024-03-14] MEDS ORDERED: HALOPERIDOL 5 MG TABLET PO PRN (01:45)
[2024-03-14] MEDS ORDERED: LORazepam 2 MG TABLET PO PRN (01:45)
[2024-03-14 02:44] LABS: BASOPHILS % (AUTO) 0.8 % (0.0-2.0); EOSINOPHILS % (AUTO) 0.5 % (1.0-6.0); HEMATOCRIT 32.4 % (36-46); HEMOGLOBIN 10.6 g/dL (12.0-16.0); LYMPHOCYTES # (AUTO) 2.7 K/uL (1.0-4.8); MEAN CORPUSCULAR HEMOGLOBIN 29.8 pg (26.0-34.0); MEAN CORPUSCULAR HGB CONC 32.7 G/dL (31.0-37.0); MEAN CORPUSCULAR VOLUME 91 fL (80-100); MONOCYTES # (AUTO) 0.7 K/uL (0.1-1.0); MONOCYTES % (AUTO) 6.6 % (2.0-9.0); NEUTROPHILS # (AUTO) 6.5 K/uL (1.8-7.7); NEUTROPHILS % (AUTO) 65.1 % (40.0-70.0); PLATELET COUNT (AUTO) 332 K/uL (150-450); RED BLOOD CELL COUNT(AUTO) 3.55 MIL/uL (4.00-5.20); RED CELL DISTRIBUTION WIDTH 17.5 % (11.5-14.5); WHITE BLOOD COUNT (AUTO) 9.9 K/uL (4.5-11.0)
[2024-03-14 02:52] LABS: ANION GAP 10 mmol/L (8-16); CALCIUM, TOTAL 10.1 mg/dL (8.8-10.5); CARBON DIOXIDE 26 mmol/L (22-29); CHLORIDE 101 mmol/L (98-107); CREATININE 1.68 mg/dL (0.60-1.30); GLOMERULAR FILTR. RATE CALC 41 mL/min (>60); GLUCOSE,RANDOM 105 mg/dL (70-110); POTASSIUM 4.6 mmol/L (3.5-5.1); SODIUM SERUM 137 mmol/L (136-145); UREA NITROGEN, BLOOD 23 mg/dL (7-18)
[2024-03-14 02:54] LABS: ALCOHOL, BLOOD (SERUM) < 3 mg/dL (0-10)
[2024-03-14 02:58] LABS: ALANINE AMINOTRANSFERASE 20 U/L (12-78); ALBUMIN 4.5 g/dL (3.4-5.0); ALKALINE PHOSPHATASE 58 U/L (46-116); ASPARTATE AMINOTRANSFERASE 32 U/L (15-37); TOTAL PROTEIN, SERUM 8.9 g/dL (6.4-8.2)
[2024-03-14 08:58] LABS: APPEARANCE,URINE CLEAR (CLEAR); BILIRUBIN,URINE NEGATIVE (NEGATIVE); COLOR,URINE YELLOW (YELLOW); GLUCOSE, URINE (UA) NEGATIVE (NEGATIVE); KETONES,URINE NEGATIVE (NEGATIVE); LEUKOCYTE ESTERASE ,URINE NEGATIVE (NEGATIVE); NITRATE,URINE NEGATIVE (NEGATIVE); OCCULT BLOOD,URINE SMALL (NEGATIVE); PROTEIN,URINE NEGATIVE (NEGATIVE); UROBILINOGEN,URINE <=1.0 mg/dL (<=1.0)
[2024-03-14 09:19] LABS: ALCOHOL, URINE DRUG SCREEN NEGATIVE (NEGATIVE); AMPHET/METH SCREEN,URINE NEGATIVE (NEGATIVE); BARBITURATE SCREEN, URINE NEGATIVE (NEGATIVE); BENZODIAZEPINES SCREEN,URINE NEGATIVE (NEGATIVE); CANNABINOID SCREEN,URINE NEGATIVE (NEGATIVE); COCAINE SCREEN,URINE NEGATIVE (NEGATIVE); METHADONE SCREEN, URINE NEGATIVE (NEGATIVE); OPIATE SCREEN,URINE NEGATIVE (NEGATIVE); PHENCYCLIDINE SCREEN,URINE NEGATIVE (NEGATIVE)
[2024-03-14 09:24] LABS: BACTERIA,URINE Rare /HPF (None Seen); SQUAMOUS EPITHELIAL CELL,UR Rare /LPF (None Seen); WBC,URINE 0-2 /HPF (0-5)
[2024-03-14 11:04] LABS: COVID AG,FIA SOURCE NASAL SWAB
[2024-03-14 11:24] LABS: SARS-COV2 (COVID) ANTIGEN,FIA Negative (Negative)
[2024-03-14 13:39] VITALS: BP 100/63; PULSE 62; RESP 16; TEMP 97.1
[2024-03-14 21:32] VITALS: BP 111/64; PULSE 68; RESP 18; TEMP 98.1
[2024-03-14] MEDS: ZOLPIDEM TARTRATE 10 MG TABLET PO PRN (22:52)
[2024-03-15] MEDS ORDERED: ALBUTEROL SULFATE HFA 90 MCG/PUFF 8 GM INHALER IH PRN (06:45)
[2024-03-15] MEDS ORDERED: OMEPRAZOLE 20 MG CAPSULE PO PRN (06:45)
[2024-03-15] MEDS ORDERED: MAG HYDROX/ALUMINUM HYD/SIMETH ES 30 ML SUSPENSION UDCUP PO PRN (06:45)
[2024-03-15] MEDS ORDERED: ONDANSETRON HCL 4 MG TABLET PO PRN (06:45)
[2024-03-15] MEDS ORDERED: BACITRACIN 28 GM OINTMENT TP PRN (06:45)
[2024-03-15] MEDS ORDERED: BENZOCAINE/MENTHOL LOZENGE PO PRN (06:45)
[2024-03-15] MEDS ORDERED: CloNIDine HCL 0.1 MG TABLET PO PRN (06:45)
[2024-03-15] MEDS ORDERED: LOPERAMIDE HCL 2 MG CAPSULE PO PRN (06:45)
[2024-03-15] MEDS ORDERED: PETROLATUM,WHITE 28 GM JELLY TP PRN (06:45)
[2024-03-15] MEDS ORDERED: DOCUSATE SODIUM 100 MG CAPSULE PO PRN (06:45)
[2024-03-15] MEDS ORDERED: IBUPROFEN 600 MG TABLET PO PRN (06:45)
[2024-03-15] MEDS ORDERED: MAGNESIUM HYDROXIDE SUSPENSION 30 ML UDCUP PO PRN (06:45)
[2024-03-15] MEDS: ARIPiprazole 15 MG TABLET PO SCH ×2 (09:00→20:37)
[2024-03-15] MEDS: LamoTRIgine 100 MG TABLET PO SCH ×2 (10:23→20:37)
[2024-03-15 10:51] VITALS: BP 106/57; PULSE 84; RESP 18; TEMP 97.5
[2024-03-15 21:38] VITALS: BP 117/62; PULSE 76; RESP 18; TEMP 96.4
[2024-03-16 08:14] LABS: ANION GAP 4 mmol/L (8-16); CARBON DIOXIDE 30 mmol/L (22-29); CHLORIDE 106 mmol/L (98-107); CREATININE 1.05 mg/dL (0.60-1.30); GLOMERULAR FILTR. RATE CALC > 60 mL/min (>60); GLUCOSE,RANDOM 83 mg/dL (70-110); POTASSIUM 4.1 mmol/L (3.5-5.1); SODIUM SERUM 140 mmol/L (136-145); UREA NITROGEN, BLOOD 15 mg/dL (7-18)
[2024-03-16 09:00] VITALS: BP 100/59; PULSE 96; TEMP 97.3
[2024-03-16] MEDS: ACETAMINOPHEN 325 MG TABLET PO PRN (12:40)
[2024-03-16 12:41] VITALS: BP 102/50; PULSE 72; RESP 18; TEMP 98.2
[2024-03-16 13:41] VITALS: BP 119/64; PULSE 112; RESP 18; TEMP 97.6
[2024-03-16 20:21] VITALS: BP 99/61; PULSE 66; RESP 18; TEMP 98.1
[2024-03-17 09:04] VITALS: BP 112/57; PULSE 77; RESP 18; TEMP 97.2
== END 2024-03-17 14:46 | disposition home or self-care (01) | DRG 885 ==
LOC: EMS 00:28 → UNDOADMIN 13:20 → 3EX 13:20
PROVIDERS: ADMIT Psychiatry & Neurology Psychiatry; ATTEND Psychiatry & Neurology Psychiatry
DX: F31.9 Bipolar disorder, unspecified (principal); F20.9 Schizophrenia, unspecified; J45.909 Unspecified asthma, uncomplicated; E66.9 Obesity, unspecified; E78.5 Hyperlipidemia, unspecified; Z20.822 Contact with and (suspected) exposure to COVID-19; F41.9 Anxiety disorder, unspecified; K59.00 Constipation, unspecified; Z88.0 Allergy status to penicillin; Z90.49 Acquired absence of other specified parts of digestive tract; Z68.34 Body mass index [BMI] 34.0-34.9, adult; Z63.4 Disappearance and death of family member; Z79.899 Other long term (current) drug therapy
CPT/HCPCS: 80048; 80053; 80307; 81001; 85025; 99285; G0378; G0480; J1200; J1630; J2060

== ENCOUNTER 2025-03-05 10:31 | Inpatient (IN) | payer MEDICARE, MEDICAID ==
[~2025-03-05] VITALS: Ht 162.6 cm; Wt 77.3 kg
[~2025-03-05 10:31] MED LIST changes: +CEFU250T87 PO; -IBUP-1492 PO; +OMEP-148 PO; -ONDA-104 PO
[2025-03-05 11:09] VITALS: O2SAT 98
[2025-03-05 11:15] LABS: COVID AG,FIA SOURCE NASAL SWAB
[2025-03-05] MEDS: DiphenhydrAMINE HCL 50 MG/ML VIAL IM ONE (11:23)
[2025-03-05] MEDS: LORazepam 2 MG/ML VIAL IM ONE (11:23)
[2025-03-05] MEDS: haloperidoL LACTATE 5 MG/ML VIAL IM ONE (11:24)
[2025-03-05 11:35] LABS: SARS-COV2 (COVID) ANTIGEN,FIA Negative (Negative)
[2025-03-05 11:39] LABS: BASOPHILS % (AUTO) 0.7 % (0.0-2.0); HEMATOCRIT 31.4 % (36-46); HEMOGLOBIN 10.3 g/dL (12.0-16.0); LYMPHOCYTES # (AUTO) 2.1 K/uL (1.0-4.8); LYMPHOCYTES % (AUTO) 25.6 % (22.0-44.0); MEAN CORPUSCULAR HEMOGLOBIN 30.1 pg (26.0-34.0); MEAN CORPUSCULAR HGB CONC 32.7 G/dL (31.0-37.0); MEAN CORPUSCULAR VOLUME 92 fL (80-100); MONOCYTES # (AUTO) 0.7 K/uL (0.1-1.0); MONOCYTES % (AUTO) 9.3 % (2.0-9.0); NEUTROPHILS # (AUTO) 5.1 K/uL (1.8-7.7); NEUTROPHILS % (AUTO) 63.4 % (40.0-70.0); PLATELET COUNT (AUTO) 369 K/uL (150-450); RED BLOOD CELL COUNT(AUTO) 3.42 MIL/uL (4.00-5.20); RED CELL DISTRIBUTION WIDTH 14.5 % (11.5-14.5)
[2025-03-05] MEDS ORDERED: haloperidoL 5 MG TABLET PO PRN (11:45)
[2025-03-05] MEDS ORDERED: ZOLPIDEM TARTRATE 10 MG TABLET PO PRN (11:45)
[2025-03-05] MEDS ORDERED: LORazepam 2 MG TABLET PO PRN (11:45)
[2025-03-05 11:47] LABS: PH,URINE DRUG SCREEN 7.5 (5.0-8.0)
[2025-03-05 11:52] LABS: ANION GAP 5 mmol/L (8-16); CALCIUM, TOTAL 9.8 mg/dL (8.8-10.5); CARBON DIOXIDE 29 mmol/L (22-29); CHLORIDE 102 mmol/L (98-107); CREATININE 1.03 mg/dL (0.60-1.30); GLOMERULAR FILTR. RATE CALC > 60 mL/min (>60); GLUCOSE,RANDOM 91 mg/dL (70-110); POTASSIUM 4.7 mmol/L (3.5-5.1); SODIUM SERUM 136 mmol/L (136-145); UREA NITROGEN, BLOOD 10 mg/dL (7-18)
[2025-03-05 11:53] LABS: ALCOHOL, URINE DRUG SCREEN NEGATIVE (NEGATIVE); AMPHET/METH SCREEN,URINE NEGATIVE (NEGATIVE); BARBITURATE SCREEN, URINE NEGATIVE (NEGATIVE); BENZODIAZEPINES SCREEN,URINE NEGATIVE (NEGATIVE); CANNABINOID SCREEN,URINE NEGATIVE (NEGATIVE); COCAINE SCREEN,URINE NEGATIVE (NEGATIVE); METHADONE SCREEN, URINE NEGATIVE (NEGATIVE); OPIATE SCREEN,URINE NEGATIVE (NEGATIVE); PHENCYCLIDINE SCREEN,URINE NEGATIVE (NEGATIVE)
[2025-03-05 15:15] VITALS: BP 90/68; PULSE 20; RESP 14; TEMP 97.2; O2SAT 98
[2025-03-05 15:25] VITALS: BP 90/68; PULSE 48; RESP 16; TEMP 96
== END 2025-03-05 15:55 | disposition home or self-care (01) | DRG 885 ==
LOC: EMS 10:43 → B2X 13:12
PROVIDERS: ADMIT Psychiatry & Neurology Psychiatry; ATTEND Psychiatry & Neurology Psychiatry
DX: F31.9 Bipolar disorder, unspecified (principal); J45.909 Unspecified asthma, uncomplicated; Z79.899 Other long term (current) drug therapy; Z78.1 Physical restraint status
CPT/HCPCS: 80048; 80307; 84703; 85025; 96372; 99285; G0480; J1200; J1630; J2060

== ENCOUNTER 2025-05-05 15:28 | Emergency (ER) | payer MEDICARE, OTHER ==
[~2025-05-05] VITALS: Ht 160 cm; Wt 78.0 kg
[2025-05-05 16:05] LABS: PLATELET COUNT (AUTO) 340 K/uL (150-450); RED BLOOD CELL COUNT(AUTO) 3.90 MIL/uL (4.00-5.20); RED CELL DISTRIBUTION WIDTH 15.0 % (11.5-14.5); WHITE BLOOD COUNT (AUTO) 7.0 K/uL (4.5-11.0)
[2025-05-05 16:14] LABS: CALCIUM, TOTAL 9.8 mg/dL (8.8-10.5); CREATININE 1.16 mg/dL (0.60-1.30); GLOMERULAR FILTR. RATE CALC > 60 mL/min (>60); GLUCOSE,RANDOM 98 mg/dL (70-110); SODIUM SERUM 138 mmol/L (136-145); UREA NITROGEN, BLOOD 15 mg/dL (7-18)
[2025-05-05 16:22] LABS: TROPONIN I-HIGH SENSITIVITY 5 ng/L (<51)
[2025-05-05] MEDS: PB/HYOSCY/ATR/SCOP/LIDO/MAALOX 55 ML BOTTLE PO ONE (17:19)
[2025-05-05 17:29] LABS: ASPARTATE AMINOTRANSFERASE 20.0 U/L (15-37); TOTAL PROTEIN, SERUM 8.3 g/dL (6.4-8.2)
[2025-05-05 17:59] VITALS: BP 117/74; PULSE 72; RESP 18; TEMP 97.7; O2SAT 99
[2025-05-06] MEDS ORDERED: ONDA-104 PO (17:31)
[2025-05-06] MEDS ORDERED: ACET-3385 PO (17:31)
== END 2025-05-05 18:04 | disposition left against medical advice (07) ==
LOC: EMS 15:28
DX: R07.2 Precordial pain (principal); F20.9 Schizophrenia, unspecified; J45.909 Unspecified asthma, uncomplicated; F31.9 Bipolar disorder, unspecified; N89.8 Other specified noninflammatory disorders of vagina; Z90.49 Acquired absence of other specified parts of digestive tract; Z88.0 Allergy status to penicillin; Z53.29 Procedure and treatment not carried out because of patient's decision for other reasons; Z79.899 Other long term (current) drug therapy
CPT/HCPCS: 71045; 80048; 80076; 83690; 84484; 84702; 85025; 93005; 99285; 36415-L1; 36415-TC

== ENCOUNTER 2025-05-06 15:51 | Emergency (ER) | payer MEDICARE, OTHER ==
[~2025-05-06] VITALS: Ht 160 cm; Wt 75.0 kg
[2025-05-06 15:53] VITALS: BP 134/78; PULSE 78; RESP 18; TEMP 98.6; O2SAT 99
[2025-05-06] MEDS: MAG HYDROX/ALUMINUM HYD/SIMETH 30 ML SUSPENSION UDCUP PO ONE (16:36)
[2025-05-06] MEDS: ONDANSETRON 4 MG TABLET PO ONE (16:37)
[2025-05-06] MEDS: FAMOTIDINE 20 MG TABLET PO ONE (16:37)
[2025-05-06 16:58] LABS: PLATELET COUNT (AUTO) 371 K/uL (150-450); RED BLOOD CELL COUNT(AUTO) 4.25 MIL/uL (4.00-5.20); RED CELL DISTRIBUTION WIDTH 14.9 % (11.5-14.5); WHITE BLOOD COUNT (AUTO) 8.1 K/uL (4.5-11.0)
[2025-05-06 17:06] LABS: CALCIUM, TOTAL 9.7 mg/dL (8.8-10.5); CREATININE 1.00 mg/dL (0.60-1.30); GLOMERULAR FILTR. RATE CALC > 60 mL/min (>60); GLUCOSE,RANDOM 106 mg/dL (70-110); SODIUM SERUM 139 mmol/L (136-145); UREA NITROGEN, BLOOD 13 mg/dL (7-18)
[2025-05-06 17:12] LABS: ASPARTATE AMINOTRANSFERASE 20.0 U/L (15-37); TOTAL PROTEIN, SERUM 8.7 g/dL (6.4-8.2)
[2025-05-06 17:16] LABS: TROPONIN I-HIGH SENSITIVITY 4 ng/L (<51)
[2025-05-06] MEDS ORDERED: ACET-3385 PO (17:31)
[2025-05-06] MEDS ORDERED: ONDA-104 PO (17:31)
== END 2025-05-06 20:41 | disposition home or self-care (01) ==
LOC: EMS 15:51
DX: R07.89 Other chest pain (principal); J45.909 Unspecified asthma, uncomplicated; F20.9 Schizophrenia, unspecified; F31.9 Bipolar disorder, unspecified; Z90.49 Acquired absence of other specified parts of digestive tract; Z88.0 Allergy status to penicillin; Z79.899 Other long term (current) drug therapy; Z98.890 Other specified postprocedural states
CPT/HCPCS: 99284; 80048; 80076; 84484; 84703; 85025; 36415; 93005; Q0162